=== PATIENT | male | born 1960 | race Caucasian/White ===

== ENCOUNTER 2018-07-15 12:51 | Observation (INO) | payer OTHER ==
--- NOTE | 2018-07-15 13:28 | ED ---
HPI Chest Pain - HPI Summary HPI Summary: This patient is a 57 year old M presenting to [facility] with a chief complaint of mid-sternal CP radiating to back that began earlier today. The patient rates the pain 9/10 in severity. Symptoms aggravated by position changes. Symptoms alleviated by nothing. Patient reports dizziness, cold hands and head. Patient denies nausea and SOB. - History of Current Complaint Chief Complaint: EDChestPainROMI Time Seen by Provider: 07/15/18 13:04 Hx Obtained From: Patient Onset/Duration: Started Hours Ago, Atraumatic, Still Present Timing: Constant Initial Severity: Severe Current Severity: Severe Pain Intensity: 9 Pain Scale Used: 0-10 Numeric Chest Pain Location: Mid Sternal Chest Pain Radiates: Yes Chest Pain Radiates To:: Back Aggravating Factor(s): Other: - Position changes Alleviating Factor(s): Nothing Associated Signs and Symptoms: Positive: Other: - Positive dizziness, cold hands and head. Negative nausea and SOB. - Allergy/Home Medications Allergies/Adverse Reactions: Allergies Allergy/AdvReac Type Severity Reaction Status Date / Time Penicillins Allergy Unknown Verified 07/15/18 12:59 Reaction Details PMH/Surg Hx/FS Hx/Imm Hx Previously Healthy: Yes Endocrine/Hematology History: Denies: Hx Diabetes Cardiovascular History: Denies: Hx Hypercholesterolemia, Hx Hypertension Infectious Disease History: No Infectious Disease History: Denies: Traveled Outside the [place] in Last 30 Days - Family History Known Family History: Positive: Cardiac Disease - Social History Occupation: Employed Full-time Lives: With Family Alcohol Use: Rare Hx Substance Use: No Substance Use Type: Reports: None Hx Tobacco Use: No Smoking Status (MU): Never Smoked Tobacco Review of Systems Positive: Chest Pain Negative: Shortness Of Breath Negative: Nausea Positive: Other - Positive cold hands and head Neurological: Other - Positive dizziness All Other Systems Reviewed And Are Negative: Yes Physical Exam - Summary Physical Exam Summary: GENERAL: Patient is a well-developed and nourished male. Appears uncomfortable secondary to pain.Patient is not in any acute respiratory distress. HEAD AND FACE: Normocephalic EYES: PERRLA, EOMI x 2. EARS: Hearing grossly intact. MOUTH: Oropharynx within normal limits. NECK: Supple, trachea is midline, no adenopathy, no JVD, no carotid bruit. CHEST: Symmetric, no tenderness at palpation LUNGS: Clear to auscultation bilaterally. No wheezing or crackles. CVS: Regular rate and rhythm, S1 and S2 present, no murmurs or gallops appreciated. ABDOMEN: Soft, Tender to palpation in the epigastric area. Bowel sounds are normal. No abdominal abnormal pulsations. EXTREMITIES: Full ROM in all major joints, no edema, no cyanosis or clubbing. NEURO: Alert and oriented x 3. No acute neurological deficits. Speech is normal and follows commands. SKIN: Dry and warm Triage Information Reviewed: Yes Vital Signs On Initial Exam: Initial Vitals Temp Pulse Resp BP Pulse Ox 97.9 F 70 18 155/114 99 07/15/18 12:56 07/15/18 12:56 07/15/18 12:56 07/15/18 12:56 07/15/18 12:56 Vital Signs Reviewed: Yes Diagnostics - Vital Signs Vital Signs Temp Pulse Resp BP Pulse Ox 07/15/18 13:17 20 176/91 07/15/18 13:16 18 07/15/18 12:56 97.9 F 70 18 155/114 99 - Laboratory Result Diagrams: 07/15/18 15:30 07/15/18 15:30 Lab Statement: Any lab studies that have been ordered have been reviewed, and results considered in the medical decision making process. - Radiology CXR Radiology Interpretation Completed By: Radiologist Summary of Radiographic Findings: CXR reveals, per radiologist, no active cardiopulmonary disease. ED physician has reviewed this radiology report. - CT CTA chest/abdomen/pelvis CT Interpretation Completed By: Radiologist Summary of CT Findings: CTA chest reveals, per radiologist, 1. NO AORTIC DISSECTION OR ANEURYSMAL DILATATION. 2. THERE IS A MURALIZED FILLING DEFECT OF A SEGMENTAL BRANCH OF THE LEFT LOWER LOBE, SUGGESTIVE OF A SUBACUTE TO CHRONIC PULMONARY EMBOLISM WITH A QUESTIONABLE FILLING DEFECT TO A SEGMENTAL BRANCH OF THE LINGULA, THOUGH THIS MAY BE SECONDARY TO MOTION ARTIFACT. 3. CHOLELITHIASIS. 4. FATTY INFILTRATION OF THE LIVER. 5. PRELIMINARY FINDINGS WERE DISCUSSED WITH DR. PENDLETON AT APPROXIMATELY 5:25 PM ON JULY 15 2018 . ED physician has reviewed this radiology report. - EKG 1303 Cardiac Rate: NL EKG Rhythm: Sinus Rhythm - 61 BPM Summary of EKG Findings: An EKG taken at 1303 reveals nml sinus rhythm at 61 BPM with normal axis. Chest Pain Course/Dx - Course Course Of Treatment: This patient is a 57 year old M presenting to [facility] with a chief complaint of mid-sternal CP radiating to back that began earlier today. Physical Exam Findings: Tender to palpation in the epigastric area. Appears uncomfortable secondary to pain. An EKG taken at 1303 reveals nml sinus rhythm at 61 BPM with normal axis. CXR reveals, per radiologist, no active cardiopulmonary disease. CTA chest/abdomen/pelvis reveals, per radiologist, 1. NO AORTIC DISSECTION OR ANEURYSMAL DILATATION. 2. THERE IS A MURALIZED FILLING DEFECT OF A SEGMENTAL BRANCH OF THE LEFT LOWER LOBE, SUGGESTIVE OF A SUBACUTE TO CHRONIC PULMONARY EMBOLISM WITH A QUESTIONABLE FILLING DEFECT TO A SEGMENTAL BRANCH OF THE LINGULA, THOUGH THIS MAY BE SECONDARY TO MOTION ARTIFACT. 3. CHOLELITHIASIS. 4. FATTY INFILTRATION OF THE LIVER. 5. PRELIMINARY FINDINGS WERE DISCUSSED WITH DR. PENDLEOTN AT APPROXIMATELY 5:25 PM ON JULY 15 2018 . Bloodwork obtained. In the ED course the patient was given Zofran, fluids, nitroglycerin, morphine, lidocaine, contrast, aspirin, and Maalox. Consult with Dr. Hurley (hospitalist) at 1800. He agrees to admit the patient for further evaluation. The patient is agreeable with this plan. - Diagnoses Provider Diagnoses: Chest pain Discharge - Sign-Out/Discharge Documenting (check all that apply): Patient Departure - Admit to [facility] Patient Received Moderate/Deep Sedation with Procedure: No - Discharge Plan Condition: Stable Disposition: ADMITTED TO [facility] - Billing Disposition and Condition Condition: STABLE Disposition: Admitted to [facility] - Attestation Statements Document Initiated by Carmitaibe: Yes Documenting Scribe: Raysa Ibarra Provider For Whom Ilia is Documenting (Include Credential): Dr. Thais Pendleton MD Scribe Attestation: I, Raysa Ibarra, scribed for Dr. Thais Pendleton MD on 07/17/18 at 1602. Scribe Documentation Reviewed: Yes Provider Attestation: The documentation as recorded by the Raysa fierro accurately reflects the service I personally performed and the decisions made by me, Dr. Thais Pendleton MD Status of Scribe Document: Viewed
[2018-07-15] MEDS ORDERED: Nitroglycerin TAB 0.4 MG* 0.4 MG TAB SL ONE (13:43)
[2018-07-15] MEDS ORDERED: Aspirin 81 mg CHEW TAB* 81 MG TAB.CHEW PO ONE (13:43)
[2018-07-15] MEDS ORDERED: Al Hydrox/Mg Hydrox/Simet LIQ* 30 ML UDC PO ONE (14:10)
[2018-07-15] MEDS ORDERED: Lidocaine 2% VISCOUS* 15 ML UDC PO ONE (14:10)
[2018-07-15] MEDS ORDERED: Ondansetron INJ* 2 MG/ML VIAL IV ONE (14:11)
[2018-07-15] MEDS ORDERED: NS 0.9% 1000 ML** 1,000 ML IV ONE (14:12)
[2018-07-15] MEDS ORDERED: Morphine VIAL* 4 MG/ML VIAL (1 ml vial) IV ONE (14:18)
[2018-07-15 15:35] LABS: Activated Partial Thrombo Time 27.2 seconds (26.0-36.3)
[2018-07-15 15:41] LABS: ABS Basophils 0 10^3/ul (0-0.2); ABS Eosinophils 0 10^3/ul (0-0.6); ABS Lymphocytes 0.7 10^3/ul (1.0-4.8); ABS Monocytes 0.2 10^3/ul (0-0.8); ABS Neutrophils 8.3 10^3/ul (1.5-7.7); ABS Nucleated RBC 0 10^3/ul; Eosinophil % 0 %; Hematocrit 46 % (42-52); Hemoglobin 15.8 g/dl (14.0-18.0); Lymphocyte % 7.8 %; Mean Corpuscular HGB Conc 35 g/dl (31-36); Mean Corpuscular Hemoglobin 33 pg (27-31); Mean Corpuscular Volume 95 fL (80-94); Mean Platelet Volume 6.8 fL (7.4-10.4); Nucleated Red Blood Cells % 0; Platelet Count 268 10^3/ul (150-450); Red Blood Count 4.84 10^6/ul (4.00-5.40); Red Cell Distribution Width 13 % (10.5-15); White Blood Count 9.3 10^3/ul (3.5-10.8)
[2018-07-15 15:59] LABS: Albumin 4.6 g/dL (3.2-5.2); Albumin/Globulin Ratio 1.7 (1-3); BUN/Creatinine Ratio 12.2 (8-20); Calcium 9.4 mg/dL (8.6-10.3); EGFR Non-African American 87.6 (>60); Globulin 2.7 g/dL (2-4); Magnesium 1.8 mg/dL (1.9-2.7); Potassium 4.3 mmol/L (3.5-5.0); Total Bilirubin 0.8 mg/dL (0.2-1.0); Total Protein 7.3 g/dL (6.4-8.9)
[2018-07-15] MEDS ORDERED: Iohexol 350* (CONTRAST) 500 ML MDV IV ONE (16:08)
[2018-07-15] MEDS ORDERED: Warfarin TAB(*) 5 MG PO ONE (19:00)
[2018-07-15] MEDS: Enoxaparin(*) 150 MG/ML 1 ML SYRINGE SUBCUT SCH (19:14)
[2018-07-15] MEDS: oxyCODONE TAB* 5 MG TAB PO PRN (20:21)
[2018-07-15] MEDS: Morphine VIAL* 4 MG/ML VIAL (1 ml vial) IV PRN (21:03)
--- NOTE | 2018-07-15 23:28 | HP ---
CC: Dr. Rosen * [facility] MEDICINE HISTORY AND PHYSICAL: DATE OF ADMISSION: 07/15/18 PRIMARY CARE PHYSICIAN: Dr. Rosen. ATTENDING PHYSICIAN: Dr. Ku * (dictation provided by Michelle Asencio NP). CHIEF COMPLAINT: Chest pain and shortness of breath. HISTORY OF PRESENT ILLNESS: Mr. Moffett is a 57-year-old male with no known past medical history, presented to the hospital today after week and a half of intermittent midsternal chest discomfort that has been worsening in intensity and severity. Mr. Moffett states that he first felt these feelings last Tuesday. He describes the midsternal chest pain is associated with some feelings of lightheadedness and shortness of breath. It does radiate into the epigastric region. He does not have a history of heartburn, but thought perhaps it could be heartburn initially. The first episode lasted 3 to 4 hours. The next episode was a little bit longer and that occurred on Tuesday of this past week. Today, at 8 a.m., the patient again had a sudden onset of severe pain in the center of his chest. He stated by about an hour later, the pain had peaked in intensity and has been unchanged until he was given medication for pain in the emergency room. He states he is much more comfortable now, but that the pain seems to be coming on again. Again, this is associated with some lightheadedness and shortness of breath at times. He denies any diaphoresis. It does not radiate into the arm or neck and it does not seem to be associated with activity. In the emergency room, Mr. Moffett had labs which showed no leukocytosis. His vital signs are stable. His electrolytes were essentially normal. He did have a slightly elevated lactic acid of 2.3. His D-dimer was less than 200. Chest x -ray shows no acute intrathoracic process. Because of the severity and location of his pain, he did go on for a chest, abdomen and pelvis CTA, which showed that he has a "muralized filling defect of a segmental branch in the left lower suggestive of a subacute to chronic pulmonary embolism with a questionable filling defect to a segmental branch of the lingula. Cholelithiasis." Mr. Moffett's weight is 300 pounds, which puts him over the 120 kg cut-off point for use of oral anticoagulants and therefore he will be started on Lovenox with warfarin. The patient denies any recent travel. He denies any recent increased sedentariness. 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 He denies any recent pain or swelling or redness to his calves. PAST MEDICAL HISTORY: None. MEDICATIONS: None. ALLERGIES: To PENICILLIN. FAMILY HISTORY: The patient reports his mother had a heart attack, but related to lung cancer after being a long-term smoker at age 70. Dad also had a heart attack, but he related to esophageal and stomach cancer in his 60s. SOCIAL HISTORY: No report of tobacco or drug use. The patient states he drinks alcohol very rarely. He lives with his and she is the healthcare proxy. REVIEW OF SYSTEMS: A 14-point review of systems was completed with Mr. Moffett and all those not mentioned above were negative. PHYSICAL EXAMINATION GENERAL: Mr. Moffett is sitting up in the bed. He is in no acute distress. VITAL SIGNS: Temperature 97.9, pulse rate 74, respiratory rate 19, O2 saturation 98% on room air, blood pressure 157/93. LUNGS: Clear to auscultation bilaterally with no accessory muscle use and good aeration. HEART: S1, S2. No murmur, rub, or gallop and regular. ABDOMEN: Soft, nontender with bowel sounds positive x4. EXTREMITIES: No cyanosis or edema. NEURO: He is alert. He is oriented x3. He moves all extremities equally. There is no facial asymmetry or focal weakness. Extraocular movements are intact. SKIN: Intact. DIAGNOSTIC STUDIES/LAB DATA: WBC 9.3, hemoglobin 15.8, hematocrit 46, platelet count 268. INR 1.00. D-dimer less than 200. Sodium 138, potassium 4.3, chloride 105, serum bicarbonate 26, BUN 11, creatinine 0.90, glucose 128, lactic acid 2.3. Troponin 0.00. Chest x-ray again shows no acute intrathoracic process and the chest, abdomen, and pelvis CTA as is read above. The EKG shows a sinus rhythm with a heart rate of about 60. ASSESSMENT AND PLAN: Mr. Moffett is a 57-year-old male with no significant past medical history who presents today to the hospital with concern for chest pain and shortness of breath, found to have a subacute pulmonary embolism. Plans are for observation in the hospital for the followin. Pulmonary embolism. The patient's symptoms have been going on for about a week and a half, which correlates with the subacute findings of pulmonary embolism. He is stable at this point, but deserves observation in the hospital due to continued pain with associated lightheadedness and shortness of breath. Plan to check lower extremity Dopplers and transthoracic echocardiogram to further assess severity of clot burden. The patient is not a candidate for novel anticoagulant due to his weight and therefore will be started on Lovenox tonight with warfarin therapy. He will continue on oxygen as needed. 2. DVT prophylaxis with Lovenox and warfarin. 3. Code status is full code. TIME SPENT: Approximately 60 minutes was spent on the admission of this patient , more than half the time spent with the patient at the bedside reviewing the events leading up to this hospitalization, performing the physical examination and reviewing my plan of care. MICHELLE ASENCIO NP [id number]/[facility] #: [id number] SANTOS
[2018-07-16] MEDS: Morphine VIAL* 4 MG/ML VIAL (1 ml vial) IV PRN ×2 (01:05→08:17)
[2018-07-16] MEDS: Enoxaparin(*) 150 MG/ML 1 ML SYRINGE SUBCUT SCH (09:00)
--- NOTE | 2018-07-16 09:29 | PN ---
Subjective Date of Service: 07/16/18 Interval History: Ms. Moffett continues to have discomfort in the center of his chest which is mostly relieved with small doses of morphine. He is open to trying oxycodone again today to see if this oral medication can provide similar relief in anticipation of discharge. He has been up ambulating in his room without SOB or lightheadedness. He is tolerating oral intake well. Objective Active Medications: Enoxaparin Sodium (Lovenox(*)) 135 mg SUBCUT Q12H ANTONIO Morphine Sulfate (Morphine Vial*) 2 mg IV Q4H PRN Oxycodone HCl (Roxycodone Tab*) 5 mg PO Q4H PRN Warfarin Sodium (Coumadin Tab(*)) 5 mg PO DAILY@1700 ANTONIO; Protocol Vital Signs: Temp Pulse Resp BP Pulse Ox 97.4 F 73 20 160/83 98 07/16/18 08:25 07/16/18 08:25 07/16/18 08:17 07/16/18 08:25 07/16/18 08:25 Oxygen Devices in Use Now: Nasal Cannula Appearance: Male lying in bed in NAD Eyes: No Scleral Icterus Ears/Nose/Mouth/Throat: Mucous Membranes Moist Neck: Trachea Midline Respiratory: Symmetrical Chest Expansion and Respiratory Effort, Clear to Auscultation Cardiovascular: NL Sounds; No Murmurs; No JVD, No Edema Abdominal: NL Sounds; No Tenderness; No Distention Extremities: No Edema Skin: No Rash or Ulcers Neurological: Alert and Oriented x 3, NL Muscle Strength and Tone Nutrition: Taking PO's Result Diagrams: 07/15/18 15:30 07/15/18 15:30 Assess/Plan/Problems-Billing Assessment: Mr. Moffett is a 57 yo M with no significant PMH who was admitted on 07/15/18 with chest pain and pulmonary embolism. - Patient Problems (1) Pulmonary embolism Comment: - Not tachycardic, not hypoxic - No clear inciting event though patient is generally sedentary - Plan for lovenox BID until warfarin is therapeutic. Unable to use NOAC due to patient being > 120kg. - Echo with no evidence of cor pulmonale, intact EF, no wall motion or valvular abnormalities (2) DVT prophylaxis Comment: - Lovenox (3) Full code status Comment: Status and Disposition: OBV. Discharge to home.
[2018-07-16] MEDS ORDERED: Perflutren Lipid Microsphere* 3 ML VIAL ONE (10:30)
[2018-07-16 11:24] VITALS: BP 160/80
[2018-07-16] MEDS: oxyCODONE TAB* 5 MG TAB PO PRN (11:38)
--- NOTE | 2018-07-16 11:54 | ECHO ---
Patient: HARITHA PANDEY [facility] Rec#: [id number] : 1960 Date: 07/16/2018 Age: 57y Height: 183 cm / 72.0 in Weight: 136.1 kg / 300.0 lbs Sex: M BSA: 2.53 Room#: [facility] Admit Date#: 07/15/2018 Type: Inpatient Referring: Michelle Asencio NP Reading: Ramesh Josue MD [employer]er: Catarina Carranza RDCS CC: Warren Rosen MD Transthoracic Echocardiogram Indication: Pulmonary Embolism BP: 166/73 HR: 87 Rhythm: NSR Findings History: Morbid obesity. Technical Comments: The study is technically difficult. The study is technically limited due to patient body habitus. Left Ventricle: The left ventricular chamber size is normal. Mild concentric left ventricular hypertrophy is observed. Global left ventricular wall motion and contractility are within normal limits. There is normal left ventricular systolic function. The estimated ejection fraction is 60-65%. There is no consistent Doppler evidence of clinically significant diastolic dysfunction. Left Atrium: The left atrium is mildly dilated. Right Ventricle: The right ventricle is mildly dilated. The right ventricular global systolic function is low normal. Right Atrium: The right atrium is moderately dilated. Aortic Valve: The aortic valve is trileaflet. The aortic valve leaflets are mildly thickened. There is a trace of aortic regurgitation. There is no evidence of aortic stenosis. Mitral Valve: There is mitral annular calcification. The mitral valve leaflets are mildly thickened. There is a trace of mitral regurgitation. There is no evidence of mitral stenosis. Tricuspid Valve: The tricuspid valve leaflets are normal. There is trace tricuspid regurgitation. Unable to estimate the right ventricular systolic pressure. There is no tricuspid stenosis. Pulmonic Valve: The pulmonic valve structure is not well visualized. There is a trace pulmonic regurgitation. There is no pulmonic stenosis. Pericardium: There is no significant pericardial effusion. A pericardial fat pad is visualized. Aorta: There is moderate dilatation of the ascending aorta.4.2 cm There is no dilatation of the aortic arch. There is mild dilatation of the aortic root. Pulmonary Artery: The main pulmonary artery appears normal. Venous: The inferior vena cava is dilated. There is a greater than 50% respiratory change in the inferior vena cava dimension. Contrast: Definity was used to optimize study. 3 mL of diluted Definity were utilized. Intravenous contrast was used to enhance endocardial border definition. Summary: There was not any prior study for comparison. Conclusions Global left ventricular wall motion and contractility are within normal limits. There is normal left ventricular systolic function. The estimated ejection fraction is 60-65%. There is a trace of aortic regurgitation. There is a trace of mitral regurgitation. There is trace tricuspid regurgitation. Unable to estimate the right ventricular systolic pressure. There is no significant pericardial effusion. There is moderate dilatation of the ascending aorta.4.2 cm Measurements Name Value Normal Range RVDdMajor (2D) 4.9 cm (2.2 - 4.4) RAd ISD 4CH 5.8 cm (3.4 - 4.9) RA (A4C)W 4.7 cm (2.9 - 4.6) Ao root diameter (2D) 3.7 cm (2.1 - 3.5) Ascending Ao 4.2 cm (2.1 - 3.4) Aortic arch 2.3 cm (1.8 - 3.4) LA dimension (AP) 2D 4.5 cm (2.3 - 3.8) Name Value Normal Range IVC diameter 2.2 cm - Name Value Normal Range PV Vmax 1.3 m/sec -
[2018-07-16] MEDS ORDERED: Warfarin TAB(*) 5 MG PO SCH (17:00)
--- NOTE | 2018-07-16 20:41 | DS ---
CC: Dr. Rosen * HOSPITAL MEDICINE DISCHARGE SUMMARY: DATE OF ADMISSION: 07/15/18 DATE OF DISCHARGE: 07/16/18 PRIMARY CARE PHYSICIAN: Dr. Rosen. ATTENDING PHYSICIAN: Dr. White * (dictation provided by Michelle Asencio NP). PRIMARY DIAGNOSIS: Pulmonary embolism. SECONDARY DIAGNOSIS: None. MEDICATIONS: At the time of discharge are: 1. Lovenox 140 mg subcutaneously q.12 hours. 2. Warfarin 5 mg p.o. q.p.m. 3. Oxycodone 5 mg p.o. q.4 hours p.r.n. HOSPITAL COURSE: Mr. Moffett is a 57-year-old male with no known past medical history, who presented to the hospital on 07/15/18 with concern for a chest pain. Please see dictated H and P from myself for complete details. In brief, the patient reported about a week and half of intermittent chest pain. His troponin was 0.00. EKG showed no evidence of ischemia. He went on for a chest , abdomen and pelvis CTA, which did confirm that he had a muralized filling defect of a segmental branch of the left lower lobe suggestive of a subacute to chronic pulmonary embolism. Mr. Moffett had no clear risk factors for PE. He has not been traveling. He has no history of PE. He has no family history of PE. I questioned whether or not this is related to his just generally sedentary lifestyle. Regardless, the patient is treated with Lovenox b.i.d. with warfarin q.p.m. Unfortunately, he was not a candidate for a direct oral anticoagulant because of his weight being greater than 120 kg. Further evaluation was undertaken with repeat troponins, all of which were negative and a transthoracic echocardiogram that showed no evidence of cor pulmonale with an intact ejection fraction and normal wall motion and valvular function. Mr. Moffett has been doing well. Today, he is up and ambulating in his room with no difficulty. He does continue to have some chest discomfort, for which I have prescribed oxycodone. I have gone over with him at length the fact that he will need to stay on Lovenox injections b.i.d. until his INR has been between 2 to 3 for 24 hours. He will be following up with Dr. Rosen's office to acquire a new primary care physician and to alert them to the fact that he needs to have his INR checked and followed closely as of Tuesday. Mr. Moffett is medically stable for discharge to home and following up with Dr. Rosen's office regarding acquiring a new PCP. DISPOSITION: To home. DIET: Regular. ACTIVITY: The patient has been encouraged to slowly ramp up his activity over the next 5 to 10 days. I have also encouraged him that he needs to have regular movement and he should consider perhaps a standing desk once he is recovered from this PE to avoid PE in the future. I have recommended to him that if there is any question about the origin of the PE that he could consider hematology consultation, but he would at least need to be on anticoagulation for 3 months. TIME SPENT: Approximately 60 minutes was spent in the discharge of this patient , more than half that time was spent with the patient at the bedside reviewing the events leading up to and during this hospitalization, performing the physical examination, and reviewing my plan of care. MICHELLE ASENCIO NP [id number]/[facility] #: [id number] SANTOS
== END 2018-07-16 15:00 | disposition home or self-care (01) ==
LOC: ED 12:51 → MEDTELE 18:14
PROVIDERS: ADMIT Internal Medicine; ATTEND Internal Medicine
DX: I26.99 Other pulmonary embolism without acute cor pulmonale (principal); Z79.01 Long term (current) use of anticoagulants; R42 Dizziness and giddiness; Z88.0 Allergy status to penicillin; R07.9 Chest pain, unspecified
CPT/HCPCS: 36415; 71045; 71275; 74174; 80053; 83605; 83690; 83735; 83880; 84484; 85025; 85379; 85610; 85730; 93005; 93306; 93970; 96372; 96374; 96375; 96376; 99284; A9270-GY; C8929; G0378; J1650; J2270; J2405; Q9967

== ENCOUNTER 2019-05-03 05:41 | Day surgery (SDC) | payer OTHER ==
--- NOTE | 2019-04-18 16:09 | HP ---
CC: Dr. Svetlana Rapp * PREOPERATIVE HISTORY AND PHYSICAL: DATE OF ADMISSION/SURGERY: 05/03/19 This patient is scheduled for same-day surgery admission by Dr. Rosas on 05/03/19. DATE OF PREOPERATIVE HISTORY AND PHYSICAL EXAMINATION: 04/18/19. ATTENDING SURGEON: Dr. Jeimy Rosas * (dictated by Roseann Martinez NP). CHIEF COMPLAINT: Right inguinal hernia. HISTORY OF PRESENT ILLNESS: The patient is a 58-year-old male with a history of an unprovoked pulmonary embolism in June of this year and a more recent history of a symptomatic right inguinal hernia. He was referred from his primary care provider, Dr. Rapp, to discuss surgery. The patient states that he noticed pain in his right groin several months ago with certain movements and occasionally feels a bulge that comes and goes. He does not notice any pain or changes on the left side. He denies any change in bowel habits or nausea or vomiting. He denies any dysuria or signs or symptoms of incarceration or strangulation. He has lost significant amount of weight since June of this year; he weighed 305 pounds and currently weighs 190 pounds and he achieved this with the 1200 calorie diet and exercise and supervision by his primary care provider. Dr. Rosas examined the patient and noted a soft reducible right inguinal hernia. She reviewed the findings with the patient and discussed the nature of inguinal hernias, the indications for surgery and the options for surgical repair. The patient has opted for laparoscopic right inguinal hernia repair with mesh as a same-day surgery procedure under general anesthesia. Dr. Rosas described the nature of the procedure, the relevant risks and benefits and today I reviewed the expected postoperative care and recovery. The patient has had a chance to ask questions and stated that he understands the information and is satisfied with the answers given to his questions. He will sign surgical consent on the day of surgery. PAST MEDICAL HISTORY: Significant for obesity, resolved with diet and exercise ; pulmonary embolism in June 2018, unprovoked. PAST SURGICAL HISTORY: None. MEDICATIONS: 1. Multivitamin p.o. daily. 2. CoQ10 supplement p.o. daily, which he will hold 1 week preoperatively. 3. Fish oil supplement p.o. daily, which he will hold 1 week preoperatively. 4. Orthobiotic which is a probiotic 1 capsule daily. 5. Magnesium 250 mg daily. 6. Glucosamine-chondroitin 1 tablet daily. ALLERGIES: PENICILLIN causes hives. FAMILY HISTORY: No known anesthesia complications, bleeding tendencies, or clotting disorders. Father due to esophageal and gastric cancer. Mother with a history of heart disease, COPD. 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 He has never been a smoker. He rarely consumes alcohol and denies the use of other substances. REVIEW OF SYSTEMS: Constitutional: No fevers, chills, excessive fatigue, or unintended weight loss. General: No previous anesthesia complications. No history of deep vein thrombosis, but he did have an unprovoked pulmonary embolism in June 2018 and is no longer on anticoagulation. No unusual bleeding tendencies or blood transfusions. Endocrine: No diabetes or thyroid disease known. Respiratory: No dyspnea on exertion, but he states that since the pulmonary embolism, he feels that he could not take a complete deep breath, but he denies any chronic cough or use of accessory muscles. Cardiovascular: No anginal chest pain or palpitations and he exercises routinely with both cardio and weight. Gastrointestinal: As described in history of present illness. Genitourinary: No dysuria. Musculoskeletal: Normal strength and tone. Integumentary: No chronic rashes or skin changes. Neurologic: No headache, blurred vision, or areas of focal weakness. Psychiatric: No anxiety , depression, or insomnia. PHYSICAL EXAMINATION GENERAL SURVEY: The patient is a 58-year-old male, well developed, well nourished, in no acute distress. VITAL SIGNS: Height 72 inches, weight 190 pounds, body mass index 25.8. Blood pressure 108/72, pulse 72 and regular, respiratory rate 16, temperature 97.4 tympanic. HEENT: Benign. NECK: Supple. No cervical lymphadenopathy. LUNGS: Breath sounds bilaterally clear and equal. HEART: Regular rate and rhythm. No murmurs or rubs appreciated. ABDOMEN: Active bowel sounds, soft, nondistended, nontender throughout. No obvious masses or organomegaly. Inguinal exam reveals a soft reducible right inguinal hernia. GENITALIA: Exam done recently, not repeated. RECTAL: Exam done recently, not repeated. EXTREMITIES: Warm and well perfused. No edema or skin ulcerations. NEUROLOGIC: Alert and oriented x3. Steady gait. PSYCHIATRIC: Oriented to person, place and time. SKIN: Warm, dry, intact. IMPRESSION: Right inguinal hernia. PLAN: Same-day surgery admission on 05/03/[address] Jeimy Rosas's service for laparoscopic right inguinal hernia repair with mesh. DERECK MARTINEZ, TAPEMAN [id number]/CPS #: [id number] SANTOS
[~2019-05-03 05:41] MED LIST: Buffered Lidocaine 1% SYRIN* 1 ML/SYRINGE INTRADERM ONE
[2019-05-03] MEDS ORDERED: Dexamethasone IV* 4 MG/ML 1 ML (4 MG) IV SLOW PU ONE (06:00)
[2019-05-03] MEDS ORDERED: Famotidine IV* 10 MG/ML 2 ML (20 mg) IV ONE (06:00)
[2019-05-03] MEDS ORDERED: Lactated Ringers 1000 ML Bag* 1,000 ML IV SCH (06:00)
[2019-05-03] MEDS ORDERED: Dexamethasone IV* 4 MG/ML 1 ML (4 MG) ONE (06:59)
[2019-05-03] MEDS ORDERED: Heparin VIAL(*) 5000 UNITS/ML VIAL (FIVE THOUSAND) ONE (06:59)
[2019-05-03] MEDS ORDERED: Clindamycin 900 MG/D5W BAG(*) 900 MG/50 ML BAG IVPB ONE (06:59)
[2019-05-03] MEDS ORDERED: Famotidine IV* 10 MG/ML 2 ML (20 mg) ONE (07:00)
[2019-05-03] MEDS ORDERED: Bupivacaine 0.25% SDV* 30 ML ONE (07:13)
[2019-05-03] MEDS ORDERED: Ondansetron INJ* 2 MG/ML VIAL ONE (07:16)
[2019-05-03] MEDS ORDERED: Propofol* 10 MG/ML 20 ML BTL ONE (07:16)
[2019-05-03] MEDS ORDERED: Ketorolac INJ* 30 MG/ML 1 ML VIAL ONE (07:16)
[2019-05-03] MEDS ORDERED: KETAMINE HCL* 50 MG/ML 10 ML VIAL ONE (07:17)
[2019-05-03] MEDS ORDERED: Midazolam* 1 MG/ML 2 ML VIAL (2 MG) ONE (07:17)
[2019-05-03] MEDS ORDERED: fentaNYL* 50 MCG/ML 2 ML VIAL (100 MCG VIAL) ONE (07:17)
[2019-05-03] MEDS ORDERED: Rocuronium* 10 MG/ML VIAL ONE (07:20)
[2019-05-03] MEDS ORDERED: Phenylephrine 40 MCG/ML SYRINGE ONE (08:03)
[2019-05-03] MEDS ORDERED: EPHEDrine (Pressors)* 50 MG/ML VIAL ONE (08:18)
[2019-05-03] MEDS ORDERED: fentaNYL* 50 MCG/ML 2 ML VIAL (100 MCG VIAL) IV PRN (08:41)
[2019-05-03] MEDS ORDERED: Naloxone* 0.4 MG/ML 1 ML VIAL IV PRN (08:41)
[2019-05-03] MEDS ORDERED: DiMENhydriNATE IV* 50 MG/ML VIAL IV PUSH PRN (08:41)
[2019-05-03] MEDS ORDERED: Glycopyrrolate IV* 0.2 MG/ML 1 ML VIAL ONE ×2 (10:29→10:31)
[2019-05-03] MEDS ORDERED: Neostigmine Methylsulfate* 3 MG/3 ML SYRINGE ONE (10:30)
--- NOTE | 2019-05-03 11:04 | BRIEFOPN ---
Brief Operative/Procedure Note - Operation Details Pre-Op Diagnosis: right inguinal hernia Post-Op Diagnosis: right direct inguinal hernia Procedures: laparoscopic right inguinal hernia repair with mesh, TEP Surgeon(s)/Proceduralists: Alejo Washington Anesthesia: Dr. Merle PORTILLO Estimated Blood Loss: minimal, less than 20cc Findings: right direct hernia Complications: none
[2019-05-03 12:41] VITALS: BP 119/77
--- NOTE | 2019-05-03 13:26 | OP ---
DATE OF OPERATION: 05/03/19 - [facility] DATE OF : 64 SERVICE: General Surgery. ATTENDING SURGEON: Jeimy Rosas MD AIR CONDITIONING COIL ASSEMBLER: Alejo Ledbetter MD ANESTHESIOLOGIST: Dr. Isidro Bloom. ANESTHESIA: General endotracheal anesthesia. PRE-OP DIAGNOSIS: Right inguinal hernia. POST-OP DIAGNOSIS: Right direct inguinal hernia. OPERATIVE PROCEDURE: Laparoscopic right inguinal hernia repair with mesh, totally extraperitoneal. ESTIMATED BLOOD LOSS: Minimal, less than 20 cc. SPECIMENS: None. INDICATIONS FOR SURGERY: Mr. Moffett is a very pleasant 58-year-old gentleman who developed asymptomatic right inguinal hernia. Given that it was becoming increasingly bothersome, he wished to have it repaired. He elected to undergo a laparoscopic right inguinal hernia repair with mesh. He understood that the risks included, but were not limited to, bleeding, infection, injury to nearby structures, chronic pain, urinary retention, and the possibility of mesh infection and so forth. He understood alternatives and benefits as well and he wished to proceed. DESCRIPTION OF PROCEDURE: The patient was brought back to the operating room and placed on the operating room table in a supine position. Sequential compression devices were placed in the bilateral lower extremities for DVT prophylaxis. Subcutaneous heparin was also administered given his prior history of a pulmonary embolus. General endotracheal anesthesia was induced. Antibiotics with Clindamycin (given his Penicillin alllergy) were administered preoperatively and then his abdomen was prepped and draped in a normal sterile fashion after tucking both arms. Of note, the patient did urinate prior to coming to the operating room. A time out was performed confirming the patient' s name, date of and the procedure to be performed, including the laterality (right). Next, 0.25% Marcaine was infiltrated into the periumbilical area. An incision was made just at the right of the umbilicus. The skin was then divided down to the subcutaneous tissue until the anterior rectus sheath was identified. Once it was identified, a small incision was made and the rectus muscle was retracted laterally until the posterior sheath was identified. An S retractor was used to retract the rectus. The space that was presumed to be retrorectus was developed using a balloon dilator towards the pubis and insufflated; however, upon visualization of the space with a laparoscope, it was noted that we are actually above the rectus. Therefore, the balloon was removed and the subcutaneous area was desufflated and an attempt was made to do this again after retracting the rectus muscle and entering the retrorectus plane. The similar subcutaneous space was entered. Therefore, a decision was made to extend the skin incision below the umbilicus and identify the anterior rectus sheath in a new location below the umbilicus. The linear alba and anterior rectus sheath were identified. A small incision was made through the anterior rectus sheath and the rectus muscle was retracted laterally with an S retractor until the posterior sheath was identified clearly. At this point, another balloon dilator was advanced retrorectus and directed towards the pelvis. It was insufflated. It was very clear that we are in the correct retrorectus space at this time, and then once balloon dilator had completed developing the space, it was removed and a 12 mm balloon tip trocar was placed into this retrorectus space, which was clearly the correct space as the pubis was easily identified. Under direct visualization, the remaining two 5 mm trocars were placed just to the right of the midline after administering local anesthesia. At this point, the medial landmark was developed. The pubis was identified at the midline and then Jorje's ligament was also identified. The overlying preperitoneal fat was dissected off to expose it clearly. The bladder was noted to be down. The epigastric vessels were identified on the anterior abdominal wall. The lateral space was then developed bluntly and superiorly to the level of the anterior superior iliac spine and posteriorly and inferiorly towards the psoas muscle. Once this was clearly identified, the indirect space was further elucidated. The femoral vein and artery were also visualized and the epigastrics were noted to be taking off at these vessels. Just lateral to the epigastric vessels, the indirect space was identified. There was a small cord lipoma there, but there was no clear indirect hernia. Further investigation of the direct space showed that there was a direct hernia. The preperitoneal fat was reduced from the space, and then once this was done, there was clearly a defect in this area that was medial to the epigastric vessels. Attention was turned again towards the indirect space. The vas deferens was identified, and again, there did not appear to be any indirect hernia sac. There was also no femoral hernia that was identified. Therefore, at this point, the dissection was completed. Once the lateral space was cleared out towards the abdominal wall and peritoneum, there was sufficient space for appropriate placement of the mesh. A right sided medium 3D Bard mesh was selected and advanced through the 12 mm trocar. It was unfurled and positioned so that the medial aspect overlay the pubis and Coopers ligament and the lateral aspect was on the abdominal wall. The direct and indirect spaces were well overed. A tacker was used to secure it above Jorje' s ligament, lateral above the ileopubic track and on the anterior abdominal wall , with care to avoid the epigastric vessels. A final inspection of the operative space showed that there was no bleeding and hemostasis had been obtained. Therefore, the trocars were removed under direct visualization and desufflation was obtained while visualizing the mesh to ensure it remained in place. The anterior fascia at the 12mm port site was closed using an interrupted 0-vicryl suture in a figure of 8 fashion. The skin was closed using interrupted 4-0 monocryl sutures. Sterile dressing was obtained. The patient's anesthesia was reversed and he was taken to the PACU in stable condition. At the end of the case, all counts were correct and I was present during the entirety of the case. [id number]/[facility] #: [id number] MTDD
== END 2019-05-03 12:44 | disposition home or self-care (01) ==
LOC: OR 05:41
PROVIDERS: ATTEND Surgery
DX: K40.90 Unilateral inguinal hernia, without obstruction or gangrene, not specified as recurrent (principal); Z86.711 Personal history of pulmonary embolism; Z88.0 Allergy status to penicillin; M19.90 Unspecified osteoarthritis, unspecified site
CPT/HCPCS: C1781; J1100; J1644; J1885; J2250; J2405; J2704; J2710; J3010; J3490

== ENCOUNTER 2019-05-03 22:42 | Inpatient (IN) | payer OTHER ==
--- NOTE | 2019-05-03 23:20 | ED ---
Syncope/Near Syncope - HPI Summary HPI Summary: This pt is a 58 Y/O M [facility] accompanied by his friend with a CC of hypotension that has been present since 1700 today s/p a hernia repair that was done at 0730 this morning with one episode of syncope. He state that the incision site is currently still bleeding and has been swelling since he arrived home at 1400. He state states he does not have any pain on the incision site but states that he feels a pressure and the area is hrd He reports that he had a syncopal episode that was witnessed by his friend at 2130 today but did not suffer any head trauma. He states that he also has abdominal pain and rates the severity a 6/10. His blood pressure upon triage was 72/50. He denies any fever, SOB, headaches, and chills. He states no aggravating or alleviating factors. - History Of Current Complaint Chief Complaint: EDAbdPain Hx Obtained From: Patient Onset/Duration: Sudden Onset Timing: Constant Context: Witnessed Activity At Onset: Other - standing from a sitting position Associated Head Trauma: No Aggravating Factor(s): Position Change Alleviating Factor(s): Spontaneous Resolution Associated Signs And Symptoms: Negative - fever, SOB, headaches, and chills, Lightheadedness, Other - abdominal pain, hypotension - Allergies/Home Medications Allergies/Adverse Reactions: Allergies Allergy/AdvReac Type Severity Reaction Status Date / Time Penicillins Allergy Unknown Verified 05/03/19 22:56 Reaction Details PMH/Surg Hx/FS Hx/Imm Hx Previously Healthy: Yes Endocrine/Hematology History: Denies: Hx Diabetes Cardiovascular History: Reports: Hx Embolism - Admission Dx : PE Denies: Hx Hypercholesterolemia, Hx Hypertension Respiratory History: Reports: Hx Pulmonary Embolism - 07/15/18 WAS ADMITTED [facility], STATES OK NOW, NO MEDS Musculoskeletal History: Reports: Hx Arthritis - STATES VARIOUS AREAS, MILD Sensory History: Reports: Hx Contacts or Glasses - GLASSES Denies: Hx Hearing Aid Opthamlomology History: Reports: Hx Contacts or Glasses - GLASSES - Cancer History Hx Chemotherapy: No Hx Radiation Therapy: No - Surgical History Surgical History: Yes Surgery Procedure, Year, and Place: Inguinal hernia repair 05/03/19 Hx Anesthesia Reactions: No - Immunization History Immunizations Up to Date: Yes Infectious Disease History: No Infectious Disease History: Denies: Traveled Outside the [place] in Last 30 Days - Family History Known Family History: Positive: Cardiac Disease - Social History Occupation: Employed Full-time Lives: Alone Alcohol Use: Rare Alcohol Amount: MAYBE 2-3 DRINKS/PER YEAR Hx Substance Use: No Substance Use Type: Reports: None Hx Tobacco Use: No Smoking Status (MU): Never Smoked Tobacco Have You Smoked in the Last Year: No Review of Systems - ROS Summary Review of Systems Summary: Home Medications Medication Instructions Recorded Confirmed Type Oxycodone HCl/Acetaminophen 1 each PO Q6H PRN #15 tablet MDD 3 05/03/19 Rx [Percocet 5-325 mg Tablet] tabs daily Negative: Fever, Chills Cardiovascular: Other - hypotension Negative: Shortness Of Breath Positive: Abdominal Pain Skin: Other - swelling around incision site Positive: Syncope - witnessed and without head truama . Negative: Headache All Other Systems Reviewed And Are Negative: Yes Physical Exam - Summary Physical Exam Summary: General: Well-developed, Well-nourished male. No acute distress. HEENT: Normocephalic, Atraumatic. Eyes: Conjuctiva normal, PERRL. Ears: TMs within normal limits. Nares: (-) discharge, (-) erythema. Oropharynx: Clear, mucous membranes moist, (-) exudates. Neck: Soft, FROM, (-) lymphadenopathy, (-) thyromegaly, (-) JVD. Cardiovascular: Normal sinus rhythm, (-) murmur. Lungs: Clear to auscultation bilaterally (-) wheezes, (-) rales, (-) rhonchi. Abdomen: R abdominal swelling and ecchymosis, his inferior incision is soaked with bright red blood and firm. Mild tenderness to palpitation. (-) organomegaly , normal bowel sounds. Back: (-) CVA tenderness Extremities: No edema. Skin: Warm, dry, (-) rash. Neuro: Alert and oriented x3, no focal deficits. Psychiatric: Mood normal, affect normal. Triage Information Reviewed: Yes Vital Signs On Initial Exam: Initial Vitals Temp Pulse Resp BP Pulse Ox 99.0 F 95 16 72/50 98 05/03/19 22:45 05/03/19 22:45 05/03/19 22:45 05/03/19 22:45 05/03/19 22:45 Vital Signs Reviewed: Yes Procedures - Sedation Patient Received Moderate/Deep Sedation with Procedure: No Diagnostics - Vital Signs Vital Signs Temp Pulse Resp BP Pulse Ox 05/03/19 22:45 99.0 F 95 16 72/50 98 - Laboratory Result Diagrams: 05/03/19 23:05 05/03/19 23:05 Lab Statement: Any lab studies that have been ordered have been reviewed, and results considered in the medical decision making process. - CT CT A/P CT Interpretation Completed By: Radiologist Summary of CT Findings: 1. Large hematoma overlying the anterior wall of the pelvis on the right side. Punctate focus of contrast within the posterior aspect of the hematoma. This. may indicate active bleeding. This is adjacent to a right inguinal hernia. Air. and fluid is seen within the right inguinal hernia. Subcutaneous air is seen. surrounding the hematoma which also involves the abdominal and pelvic. musculature. Free air within the peritoneal cavity as well as in the. retroperitoneal space. 2. Air extends into the right lower chest wall as well as in the mediastinum. Air is seen in the anterior fat planes adjacent the heart. Air in the. pericardial sac. ED physician has reviewed this report. - EKG 2258 Cardiac Rate: NL - 66 BPM EKG Rhythm: Sinus Rhythm ST Segment: Normal Ectopy: None Summary of EKG Findings: EKG at 2258 reveals normal sinus rhythm with rate of 66 BPM, no acute changes, no ischemic changes. This EKG was reviewed and interpreted by Dr. Maurer at 2300 05/03/19. Course/Dx Course Of Treatment: 58-year-old male presents with abdominal bruising and distention. He states he had inguinal hernia surgery this morning. Went home. Over the course of the few hours he was at home he has had increasing swelling and bruising in his right abdomen. He states he called his surgeon, Dr. Rosas. She told him to present to the emergency room and she would meet him here. He had an episode of syncope upon arrival. He states the pain is minimal. On physical exam patient has ecchymosis and firm swelling in the area. CAT scan ordered. Patient seen by Dr. Rosas. She has seen the CAT scan and will take him back to the OR immediately. - Diagnoses Provider Diagnoses: Post-op bleeding - Physician Notifications Discussed Care of Patient With: Jeimy Rosas Time Discussed With Above Provider: 23:55 Instructed by Provider To: Admit As Inpatient Admit/Transition Orders Completed By ED Provider: Yes Discharge ED - Sign-Out/Discharge Documenting (check all that apply): Patient Departure - admitted All imaging exams completed and their final reports reviewed: Yes - Discharge Plan Condition: Stable Disposition: ADMITTED TO [facility] - Billing Disposition and Condition Condition: STABLE Disposition: Admitted to [facility] - Attestation Statements Document Initiated by Scribe: Yes Documenting Scribe: Manpreet García Provider For Whom Carmitaibe is Documenting (Include Credential): Zenia Maurer MD Scribe Attestation: Manpreet Castano, scribed for Zenia Maurer MD on 05/04/19 at 0128. Scribe Documentation Reviewed: Yes Provider Attestation: The documentation as recorded by the Manpreet fierro accurately reflects the service I personally performed and the decisions made by , Zenia Maurer MD Status of Scribe Document: Viewed
[2019-05-03 23:23] LABS: ABS Lymphocytes 1.2 10^3/ul (1.0-4.8); ABS Monocytes 0.7 10^3/ul (0-0.8); ABS Neutrophils 12.6 10^3/ul (1.5-7.7); Hematocrit 37 % (42-52); Hemoglobin 12.7 g/dL (14.0-18.0); Lymphocyte % 8.5 %; Mean Corpuscular HGB Conc 34 g/dL (31-36); Mean Corpuscular Hemoglobin 33 pg (27-31); Mean Corpuscular Volume 98 fL (80-94); Mean Platelet Volume 7.4 fL (7.4-10.4); Nucleated Red Blood Cells % 0.1; Platelet Count 281 10^3/uL (150-450); Red Blood Count 3.82 10^6 /uL (4.18-5.48); Red Cell Distribution Width 14 % (10-15); White Blood Count 14.6 10^3/uL (3.5-10.8)
[2019-05-03] MEDS ORDERED: Iodixanol* (CONTRAST) 320 MG/ML 100 ML SDV IV ONE (23:25)
[2019-05-03 23:30] LABS: INR 1.21 (0.82-1.09)
[2019-05-03 23:37] LABS: Calcium 9.3 mg/dL (8.6-10.3); EGFR African American 108.4 (>60); EGFR Non-African American 89.6 (>60)
[2019-05-03 23:40] LABS: Troponin I 0.01 ng/mL (<0.03)
--- OUTSIDE RECORDS SUMMARY | 2019-05-03 23:40 | XMS REPORT | Continuity of Care Document ---
:1960 External Reference #:[id number] Author Name Roseann Anaya NP (transmitted by agent of provider Fam Kim) Address [address] [facility] [place] [address] Care Team Providers Name Role Phone Warren Rosen MD - Internal Care Team Information Director Social Medicine Gibran Clemons MD - Sports Medicine Care Team Information Director Social Efe Bob MD - Neurology Care Team Information Director Social [phone] Peyton Perez Msed, RD, Ches - Care Team Information Director Social Solder Making Laborer Svetlana Rapp M.D. - Family Medicine Care Team Information Director Social Problems Active Problems Provider Date Atypical absence seizure Warren Rosen M.D.,FACP Onset: 06/11/2015 Pure hypercholesterolemia Warren Rosen M.D.,FACP Onset: 02/19/2010 Impaired fasting glycaemia Warren Rosen M.D.,FACP Onset: 02/19/2010 Morbid obesity Warren Rosen M.D.,FACP Onset: 02/19/2010 Vitamin D deficiency Warren Rosen M.D.,FACP Onset: 03/25/2010 Social History Type Date Description Comments Sex Unknown Tobacco Use Start: Unknown Never Smoked Cigarettes ETOH Use Rarely consumes alcohol Recreational Drug Use Denies Drug Use Tobacco Use Start: Unknown Patient has never smoked Smoking Status Reviewed: 04/18/19 Patient has never smoked Exercise Type/Frequency Exercises regularly Allergies, Adverse Reactions, Alerts Active Allergies Reaction Severity Comments Date Penicillins Urticaria 02/19/2010 Medications Active Medications SIG Qnty Indications Ordering Provider Date Oxycodone-Acetaminoph 1 tab by mouth 8tabs Roseann Mesa 04/18/2019 en every 6 hours as BhanukenÁLVARO valencia 5-325mg Tablets needed Multi Vitamin 1 by mouth every Unknown Tablets day Coq10 1 by mouth every Unknown 200mg Capsules day Fish Oil 1.3g 1 capsule by Unknown mouth daily Ortho-Biotic 1 capsule by Unknown mouth daily Magnesium 1 tab daily Unknown 250mg Tablets Glucosamine 1 tab daily Unknown Chondroitin 1500 Complex 1500Com Capsules Immunizations Description No Information Available Vital Signs Date Vital Result Comment 04/18/2019 2:03pm Height 72 inches 6'0" Weight 190.00 lb Heart Rate 72 /min BP Systolic Sitting 108 mmHg BP Diastolic Sitting 72 mmHg Respiratory Rate 16 /min Body Temperature 97.4 F BMI (Body Mass Index) 25.8 kg/m2 03/20/2019 1:36pm Height 72 inches 6'0" Weight 196.00 lb Heart Rate 66 /min BP Systolic Sitting 110 mmHg BP Diastolic Sitting 72 mmHg Respiratory Rate 12 /min Body Temperature 97.5 F BMI (Body Mass Index) 26.6 kg/m2 Results Test Acquired Date Facility Test Result H/L Range Note Testosterone 04/02/2019 [facility] Testosterone 852 ng/dL 240 -950 [address] [place] [address] [phone] Free Testosterone ng/dl 7.67 ng/dL 3.87-14.7 2 Bioavailable Testosterone 64 ng/dL 50-190 3 CBC Auto 10/24/2018 [facility] White Blood 3.7 10^3/uL Normal 3.5-10.[address] [place] [address] [phone] Red Blood Count 4.75 10^6/uL Normal 4.18-5.48 Hemoglobin 15.3 g/dL Normal 14.0-18.0 Hematocrit 44 % Normal 42-52 Mean Corpuscular Volume 93 fL Normal 80-94 Mean Corpuscular Hemoglobin 32 pg High 27-31 Mean Corpuscular HGB Conc 35 g/dL Normal 31-36 Red Cell Distribution Width 15 % Normal 10.5-15 Platelet Count 202 10^3/uL Normal 150-450 Mean Platelet Volume 7.8 fL Normal 7.4-10.4 Abs Neutrophils 1.8 10^3/uL Normal 1.5-7.7 Abs Lymphocytes 1.5 10^3/uL Normal 1.0-4.8 Abs Monocytes 0.3 10^3/uL Normal 0-0.8 Abs Eosinophils 0.0 10^3/uL Normal 0-0.6 Abs Basophils 0.0 10^3/uL Normal 0-0.2 Abs Nucleated RBC 0.0 10^3/uL Granulocyte % 49.8 % Lymphocyte % 39.8 % Monocyte % 8.6 % Eosinophil % 1.2 % Basophil % 0.6 % Nucleated Red Blood Cells % 0.1 Retic Count 10/24/2018 [facility] Retic Count 0.7 % Normal 0.5 -1.[address] [place] [address] [phone] Corrected Retic Count 0.7 % Normal 0.5-1.5 Maturation Factor Retic 1.0 Retic Index 0.70 Mean Retic Volume 119.8 Immature Retic Fraction 0.33 RBC Retic Count 4.75 10^6/uL Normal 4.18-5.48 Hematocrit for Retic CNT 44 % Normal 42-52 Laboratory test 10/24/2018 [facility] Vitamin B12 313 pg/mL Normal 180-914 [address] [place] [address] [phone] Methylmalonic Acid Mma 0.14 nmol/mL <=0.40 5 1 ADDITIONAL INFORMATION Testing performed by Liquid Chromatography-Tandem Mass Spectrometry (LC-MS/MS). This test was developed and its performance characteristics determined by [facility] in a manner consistent with CLIA requirements. This test has not been cleared or approved by the U.S. Food and Drug Administration. 2 ADDITIONAL INFORMATION Testing performed by Equilibrium Dialysis. This test was developed and its performance characteristics determined by [facility] in a manner consistent with CLIA requirements. This test has not been cleared or approved by the U.S. Food and Drug Administration. 3 ADDITIONAL INFORMATION Testing performed by Differential Precipitation. This test was developed and its performance characteristics determined by [facility] in a manner consistent with CLIA requirements. This test has not been cleared or approved by the U.S. Food and Drug Administration. Test Performed by: [facility] [address] [place] [address] Head Orthopedic Team Physician: Jj Mckinley M.D. Ph.D.; CLIA# [id number] 4 Normal Range 180 to 914 Indeterminate Range 145 to 180 Deficient Range <145 5 ADDITIONAL INFORMATION This test was developed and its performance characteristics determined by [facility] in a manner consistent with CLIA requirements. This test has not been cleared or approved by the U.S. Food and Drug Administration. Test Performed by: [facility] - [address] [address] Procedures Date Code Description Status 11/17/2018 67556 EKG Tracing & Interpretation Completed Medical Devices Description No Information Available Encounters Type Date Location Provider Dx Diagnosis Office Visit 03[facility] Jeimy Rosas MD K40.90 Unil inguinal 1:30p Of Chief Ophthalmic Technician hernia, w/o obst or gangr, not spcf as recur Office Visit 03/12/2019 [facility] Internal Svetlana Rapp MD I26.99 Other pulmonary 11:40a Medicine - Ccmob embolism without acute cor pulmonale K40.90 Unil inguinal hernia, w/o obst or gangr, not spcf as recur R68.82 Decreased libido Office Visit 11/17/2018 11:00a [facility] Alayna Manning R42 Dizziness and Goyo Queen giddiness I26.99 Other pulmonary embolism without acute cor pulmonale I95.1 Orthostatic hypotension R00.1 Bradycardia, unspecified Z82.49 Family hx of ischem heart dis and oth dis of the circ sys R94.31 Abnormal electrocardiogram [ECG] [EKG] Assessments Date Code Description Provider 04/18/2019 K40.90 Unilateral inguinal hernia, without Roseann Anaya NP obstruction or gangrene, not specified as recurrent 04/18/2019 Z01.818 Encounter for other preprocedural Roseann Anaya NP examination 03/29/2019 K40.90 Unilateral inguinal hernia, without Jeimy Rosas MD obstruction or gangrene, not specified as recurrent 03/20/2019 K40.90 Unilateral inguinal hernia, without Jeimy Rosas MD obstruction or gangrene, not specified as recurrent 03/12/2019 I26.99 Other pulmonary embolism without acute Svetlana Rapp MD cor pulmonale 03/12/2019 K40.90 Unilateral inguinal hernia, without Svetlana Rapp MD obstruction or gangrene, not specified as recurrent 03/12/2019 R68.82 Decreased libido Svetlana Rapp MD 11/17/2018 R42 Dizziness and giddiness Alayna Queen M.D. 11/17/2018 I26.99 Other pulmonary embolism without acute Alayna Queen M.D. cor pulmonale 11/17/2018 I95.1 Orthostatic hypotension Alayna Queen M.D. 11/17/2018 R00.1 Bradycardia, unspecified Alayna Queen M.D. 11/17/2018 Z82.49 Family history of ischemic heart Alayna Queen M.D. disease and other diseases 11/17/2018 R94.31 Abnormal electrocardiogram [ECG] [EKG] Alayna Queen M.D. Plan of Treatment Future Appointment(s):05/02/2019 9:30 am - Tania Borrero MD at [facility] Internal Medicine - [facility]05/14/2019 2:00 pm - Roseann Anaya NP at [facility]05/03/2019 7:45 am - Alejo Ledbetter MD, FACS at [facility]05/03/2019 7:45 am - Jeimy Rosas MD at [facility]04/18/2019 - Roseann Anaya, NPK40.90 Unilateral inguinal hernia, without obstruction or gangrene, not specified as recurrentFollow up:POSTOP Z01.818 Encounter for other preprocedural examination Functional Status Description No Information Available Mental Status Description No Information Available Referrals Refer to Dr Reason for Referral Status Appt Date Jeimy Rosas MD pt with R inguinal hernia Sent 03/20/[address] [place] [address] [address] [place], [place] [address] [phone]
--- OUTSIDE RECORDS SUMMARY | 2019-05-03 23:40 | XMS REPORT | Continuity of Care Document ---
:1960 External Reference #:[id number] Author Name Svetlana Rapp MD (transmitted by agent of provider Fam Kim) Address [address] [facility], [place] [address] Care Team Providers Name Role Phone Warren Rosen MD - Internal Care Team Information Road Hogger Operator Medicine Gibran Clemons MD - Sports Medicine Care Team Information Road Hogger Operator Efe Bob MD - Neurology Care Team Information Road Hogger Operator [phone] Peyton Perez Msed, RD, Ches - Care Team Information Road Hogger Operator [phone] Apparel Rental Clerk Svetlana Rapp M.D. - Family Medicine Care Team Information Road Hogger Operator Problems Active Problems Provider Date Atypical absence seizure Warren Rosen M.D.,FACP Onset: 06/11/2015 Pure hypercholesterolemia Warren Rosen M.D.,FACP Onset: 02/19/2010 Impaired fasting glycaemia Warren Rosne M.D.,FACP Onset: 02/19/2010 Morbid obesity Warren Rosen M.D.,FACP Onset: 02/19/2010 Vitamin D deficiency Warren Rosen M.D.,FACP Onset: 03/25/2010 Social History Type Date Description Comments Sex Unknown Tobacco Use Start: Unknown Never Smoked Cigarettes ETOH Use Rarely consumes alcohol Recreational Drug Use Denies Drug Use Tobacco Use Start: Unknown Patient has never smoked Smoking Status Reviewed: 03/12/19 Patient has never smoked Exercise Type/Frequency Does not exercise Allergies, Adverse Reactions, Alerts Active Allergies Reaction Severity Comments Date Penicillins Urticaria 02/19/2010 Medications Active Medications SIG Qnty Indications Ordering Provider Date Eliquis Starter Pack 1 by mouth twice Unknown 5mg a day Tablets Multi Vitamin 1 by mouth every Unknown Tablets day Coq10 1 by mouth every Unknown 200mg Capsules day Fish Oil 1.3g 1 capsule by Unknown mouth daily Ortho-Biotic 1 capsule by Unknown mouth daily Magnesium 1 tab daily Unknown 250mg Tablets Glucosamine 1 tab daily Unknown Chondroitin 1500 Complex 1500Com Capsules Immunizations Description No Information Available Vital Signs Date Vital Result Comment 03/12/2019 11:49am Height 72 inches 6'0" Weight 201.00 lb Heart Rate 57 /min BP Systolic Sitting 101 mmHg Rue reg cuff BP Diastolic Sitting 66 mmHg Rue reg cuff O2 % BldC Oximetry 97 % BMI (Body Mass Index) 27.3 kg/m2 11/17/2018 10:29am Height 72 inches 6'0" Weight 236.00 lb with shoes Heart Rate 58 /min BP Systolic Sitting 102 mmHg BP Diastolic Sitting 74 mmHg BP Systolic Standing 90 mmHg pt reported dizziness upon standing BP Diastolic Standing 70 mmHg pt reported dizziness upon standing BP Systolic Recheck 110 mmHg BP Diastolic Recheck 74 mmHg BMI (Body Mass Index) 32.0 kg/m2 Ejection Fraction 60-65% Echocardiogram 07/16/2018 Results Test Date Facility Test Result H/L Range Note CBC Auto 10/24/2018 [facility] White Blood 3.7 10^3/uL Normal 3.5-10.[address] [place] [address] [phone] Red Blood Count 4.75 10^6/uL Normal 4.18-5.48 [...] Blood Cells % 0.1 Retic Count 10/24/2018 [facility] Retic Count 0.7 % Normal 0.5 -1.5 [address] [place] [address] [phone] Corrected Retic Count 0.7 % Normal 0.5-1.5 Maturation Factor Retic 1.0 Retic Index 0.70 Mean Retic Volume 119.8 Immature Retic Fraction 0.33 RBC Retic Count 4.75 10^6/uL Normal 4.18-5.48 Hematocrit for Retic CNT 44 % Normal 42-52 Laboratory test 10/24/2018 [facility] Vitamin B12 313 pg/mL Normal 180-914 1 finding [address] [place] [address] [phone] Methylmalonic Acid Mma 0.14 nmol/mL <=0.40 2 Protime W/ Inr 10/11/2018 [facility] Prothrombin Time 20.6 Inr 1.7 Protime W/ Inr 09/27/2018 [facility] Prothrombin Time 29.2 Inr 2.4 Protime W/ Inr 09/19/2018 [facility] Prothrombin Time 24.0 Inr 2.0 1 Normal Range 180 to 914 Indeterminate Range 145 to 180 Deficient Range <145 2 ADDITIONAL INFORMATION This test was developed and its performance characteristics determined by [facility] in a manner consistent with CLIA requirements. This test has not been cleared or approved by the U.S. Food and Drug Administration. Test Performed by: [facility] - [address] [address] Procedures Date Code Description Status 11/17/2018 87014 EKG Tracing & Interpretation Completed Medical Devices Description No Information Available Encounters Type Date Location Provider Dx Diagnosis Office Visit 11/17/2018 [facility] Alayna Manning R42 Dizziness and 11:00a Goyo Queen giddiness I26.99 Other pulmonary embolism without acute cor pulmonale I95.1 Orthostatic hypotension R00.1 Bradycardia, unspecified Z82.49 Family hx of ischem heart dis and oth dis of the circ sys R94.31 Abnormal electrocardiogram [ECG] [EKG] Office Visit 10/11/2018 1:40p [facility] Internal Svetlana Rapp MD R42 Dizziness and Medicine - Ccmob giddiness Z79.01 remote 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 10/11/2018 R42 Dizziness and giddiness Svetlana Rapp MD 10/11/2018 Z79.01 correction (current) use of Nurse Visit A anticoagulants 10/11/2018 Z79.01 correction (current) use of Svetlana Rapp MD anticoagulants 10/11/2018 I26.99 Other pulmonary embolism without acute Nurse Visit A cor pulmonale 09/27/2018 Z79.01 remote computer terminal operator (current) use of Nurse Visit A anticoagulants 09/27/2018 I26.99 Other pulmonary embolism without acute Nurse Visit A cor pulmonale 09/19/2018 Z79.01 correction (current) use of Nurse Visit A anticoagulants 09/19/2018 I26.99 Other pulmonary embolism without acute Nurse Visit A cor pulmonale Plan of Treatment 03/12/2019 - Svetlana Rapp MDI26.99 Other pulmonary embolism without acute cor pulmonaleComments:I agree with discontinuing WgbptkiT96.90 Unilateral inguinal hernia, without obstruction or gangrene, not specified as recurrentReferral:Jeimy Rosas MD, Surgery,GdsnvfiM40.82 Decreased libidoNew Labs:Testosterone Profile, Ordered: 03/12/19 Functional Status Description No Information Available Mental Status Description No Information Available Referrals Refer to Reason for Referral Status Appt Date Jeimy Rosas MD pt with R inguinal hernia Created [address] [facility] [address] [place], [place] [address] [phone] Angeles Montgomery MD healthy male experiencing sudden dizzy spells with Sent low BP, new onset of split S2 [address] [place] [address] [phone] Duane Hutchinson MD Please evaluate this patient with Closed increasingly frequent episode of dysphagia and odynophagia. Thyroid ultrasound is normal. His general medical history is unremarkable except for an unprovoked pulmonary embolism in July of this year. He has a family history of esophageal cancer in his father. [address] [place] [address] [phone]
--- OUTSIDE RECORDS SUMMARY | 2019-05-03 23:40 | XMS REPORT | Continuity of Care Document ---
:1960 External Reference #:[id number] Author Name Jeimy Rosas MD (transmitted by agent of provider Linh Landin) Address [address] [facility], [place] [address] Care Team Providers Name Role Phone Warren Rosen MD - Internal Care Team Information Hot Metal Crane Operator Medicine Gibran Clemons MD - Sports Medicine Care Team Information Hot Metal Crane Operator Efe Bob MD - Neurology Care Team Information Hot Metal Crane Operator [phone] Peyton Perez Msed, RD, Ches - Care Team Information Hot Metal Crane Operator Bench Mechanic Svetlana Rapp M.D. - Family Medicine Care Team Information Hot Metal Crane Operator Problems Active Problems Provider Date Atypical [...] Patient has never smoked Smoking Status Reviewed: 03/20/19 Patient has never smoked Exercise Type/Frequency Exercises regularly Allergies, Adverse Reactions, Alerts Active Allergies Reaction Severity Comments Date Penicillins Urticaria 02/19/2010 Medications Active Medications SIG Qnty Indications Ordering Provider Date Multi Vitamin 1 by mouth every Unknown Tablets day Coq10 1 by mouth every Unknown 200mg Capsules day Fish Oil 1.3g 1 capsule by Unknown mouth daily Ortho-Biotic 1 capsule by Unknown mouth daily Magnesium 1 tab daily Unknown 250mg Tablets Glucosamine 1 tab daily Unknown Chondroitin 1500 Complex 1500Com Capsules Immunizations Description No Information Available Vital Signs Date Vital Result Comment 03/20/2019 1:36pm Height 72 inches 6'0" Weight 196.00 lb Heart Rate 66 /min BP Systolic Sitting 110 mmHg BP Diastolic Sitting 72 mmHg Respiratory Rate 12 /min Body Temperature 97.5 F BMI (Body Mass Index) 26.6 kg/m2 03/12/2019 11:49am Height 72 inches 6'0" Weight 201.00 lb Heart Rate 57 /min BP Systolic Sitting 101 mmHg Rue reg cuff BP Diastolic Sitting 66 mmHg Rue reg cuff O2 % BldC Oximetry 97 % BMI (Body Mass Index) 27.3 kg/m2 Results Test Date Facility Test Result H/L Range Note CBC Auto 10/24/2018 [facility] White Blood 3.7 10^3/uL Normal 3.5-10.[address] [place] [address] [phone] Red Blood Count 4.75 10^6/uL Normal 4.18-5.48 [...] Blood Cells % 0.1 Retic Count 10/24/2018 [facility] Retic Count 0.7 % Normal 0.5 -1.5 [address] [place] [address] [phone] Corrected Retic Count 0.7 % Normal 0.5-1.5 Maturation Factor Retic 1.0 Retic Index 0.70 Mean Retic Volume 119.8 Immature Retic Fraction 0.33 RBC Retic Count 4.75 10^6/uL Normal 4.18-5.48 Hematocrit for Retic CNT 44 % Normal 42-52 Laboratory test 10/24/2018 [facility] Vitamin B12 313 pg/mL Normal 180-914 1 finding [address] [place] [address] [phone] Methylmalonic Acid Mma 0.14 nmol/mL <=0.40 2 Protime W/ Inr 10/11/2018 [facility] In House Prothrombin Time 20.6 Inr 1.7 Protime W/ Inr 09/27/2018 [facility] Prothrombin Time 29.2 Inr 2.4 Protime W/ Inr 09/19/2018 [facility] In House Prothrombin Time 24.0 Inr 2.0 1 Normal Range 180 to 914 Indeterminate Range 145 to 180 Deficient Range <145 2 ADDITIONAL INFORMATION This test was developed and its performance characteristics determined by [facility] in a manner consistent with CLIA requirements. This test has not been cleared or approved by the U.S. Food and Drug Administration. Test Performed by: [facility] - [address] [address] Procedures Date Code Description Status 11/17/2018 48735 EKG Tracing & Interpretation Completed Medical Devices Description No Information Available Encounters Type Date Location Provider Dx Diagnosis Office Visit 03/12/2019 [facility] Svetlana Rapp MD I26.99 Other pulmonary 11:40a Medicine - Ccmob embolism without acute cor pulmonale K40.90 Unil inguinal hernia, w/o obst or gangr, not spcf as recur R68.82 Decreased libido Office Visit 11/17/2018 11:00a [facility] Alayna Leyva Dizziness and Goyo Queen giddiness I26.99 Other pulmonary embolism without acute cor pulmonale I95.1 Orthostatic hypotension R00.1 Bradycardia, unspecified Z82.49 Family hx of ischem heart dis and oth dis of the circ sys R94.31 Abnormal electrocardiogram [ECG] [EKG] Office Visit 10/11/2018 1:40p [facility] Internal Svetlana Rapp MD R42 Dizziness and Medicine - Ccmob giddiness Z79.01 jail (current) use of anticoagulants Assessments Date Code Description Provider 03/20/2019 K40.90 Unilateral inguinal hernia, without Jeimy [...] and giddiness Svetlana Rapp MD 10/11/2018 Z79.01 jail (current) use of Nurse Visit A anticoagulants 10/11/2018 Z79.01 computer terminal operator (current) use of Svetlana Rapp MD anticoagulants 10/11/2018 I26.99 Other pulmonary embolism without acute Nurse Visit A cor pulmonale 09/27/2018 Z79.01 jail (current) use of Nurse Visit A anticoagulants 09/27/2018 I26.99 Other pulmonary embolism without acute Nurse Visit A cor pulmonale 09/19/2018 Z79.01 computer terminal operator (current) use of Nurse Visit A anticoagulants 09/19/2018 I26.99 Other pulmonary embolism without acute Nurse Visit A cor pulmonale Plan of Treatment 03/20/2019 - Jeimy Rosas MDK40.90 Unilateral inguinal hernia, without obstruction or gangrene, not specified as recurrentFollow up:We will schedule you for surgery, which will be a laparoscopic right inguinal hernia repair with mesh. Please return to see me 2 weeks after surgery for a post operative visit. Functional Status Description No Information Available Mental Status Description No Information Available Referrals Refer to Dr Reason for Referral Status Appt Date Jeimy Rosas MD pt with R inguinal hernia Sent 03/20/2019 [address] [place], [place] [address] [phone] Angeles Montgomery MD healthy male experiencing sudden dizzy spells with Sent low BP, new onset of split S2 [address] [place] [address] [phone] Duane Hutchinson MD Please evaluate this patient with Closed increasingly frequent episode of dysphagia and odynophagia. Thyroid ultrasound is normal. His general medical history is unremarkable except for an unprovoked pulmonary embolism in July of this year. He has a family history of esophageal cancer in his father. [address] [place] [address] [phone]
--- OUTSIDE RECORDS SUMMARY | 2019-05-03 23:40 | XMS REPORT | Continuity of Care Document ---
:1960 External Reference #:[id number] Author Name Tania Borrero MD (transmitted by agent of provider Lore Arriaga) Address [address] [facility] [place] [address] Care Team Providers Name Role Phone Warren Rosen MD - Internal Care Team Information Formula Clerk [phone] Medicine Gibran Clemons MD - Sports Medicine Care Team Information Formula Clerk Efe Bob MD - Neurology Care Team Information Formula Clerk [phone] Peyton Perez Msed, RD, [place] - Care Team Information Formula Clerk Supervising Airplane Pilot Svetlana Rapp M.D. - Family Medicine Care Team Information Formula Clerk Problems Active Problems Provider Date Atypical absence [...] Patient has never smoked Smoking Status Reviewed: 05/02/19 Patient has never smoked Exercise Type/Frequency Exercises regularly Allergies, Adverse Reactions, Alerts Active Allergies Reaction Severity Comments Date Penicillins Urticaria 02/19/2010 Medications Active Medications SIG Qnty Indications Ordering Provider Date Oxycodone-Acetaminoph 1 tab by mouth 8tabs Roseann Mesa 04/18/2019 en every 6 hours as ÁLVARO Anaya 5-325mg Tablets needed Multi Vitamin 1 by [...] Available Vital Signs Date Vital Result Comment 05/02/2019 9:36am Height 72 inches 6'0" Weight 194.00 lb Heart Rate 53 /min BP Systolic Sitting 109 mmHg BP Diastolic Sitting 73 mmHg Body Temperature 96.5 F O2 % BldC Oximetry 98 % BMI (Body Mass Index) 26.3 kg/m2 04/18/2019 2:03pm Height 72 inches 6'0" Weight 190.00 lb Heart Rate 72 /min BP Systolic Sitting 108 mmHg BP Diastolic Sitting 72 mmHg Respiratory Rate 16 /min Body Temperature 97.4 F BMI (Body Mass Index) 25.8 kg/m2 Results Test Acquired Date Facility Test Result H/L Range Note Testosterone 04/02/2019 [facility] Testosterone 852 ng/dL 240 -950 [address] [place] [address] [phone] Free Testosterone ng/dl 7.67 ng/dL 3.87-14.7 2 Bioavailable Testosterone 64 ng/dL 50-190 3 1 ADDITIONAL INFORMATION Testing performed by Liquid Chromatography-Tandem Mass Spectrometry (LC-MS/MS). This test was developed and its performance characteristics determined by [facility] in a manner consistent with CLIA requirements. This test has not been cleared or approved by the U.S. Food and Drug Administration. 2 ADDITIONAL INFORMATION Testing performed by Equ[facility] Dialysis. This test was developed and its performance characteristics determined by [facility] in a manner consistent with CLIA requirements. This test has not been cleared or approved by the U.S. Food and Drug Administration. 3 ADDITIONAL INFORMATION Testing performed by Differential Precipitation. This test was developed and its performance characteristics determined by [facility] in a manner consistent with CLIA requirements. This test has not been cleared or approved by the U.S. Food and Drug Administration. Test Performed by: [facility] [address] [place] [address] Senior Architect: Jj Mckinley M.D. Ph.D.; CLIA# [id number] Procedures Date Code Description Status 11/17/2018 53316 EKG Tracing & Interpretation Completed Medical Devices Description No Information Available Encounters Type Date Location Provider Dx Diagnosis Office Visit [facility] MD K40.90 Unil inguinal 1:30p Of [facility] hernia, w/o obst or gangr, not spcf as recur Office Visit 03/12/2019 [facility] Svetlana Rapp MD I26.99 Other pulmonary 11:40a Medicine - C[facility] embolism without acute cor pulmonale K40.90 Unil inguinal hernia, w/o obst or gangr, not spcf as recur R68.82 Decreased libido Office Visit 11/17/2018 11:00a [facility] taedy Manning R42 Dizziness and Goyo Queen giddiness I26.99 Other pulmonary embolism without acute cor pulmonale I95.1 Orthostatic hypotension R00.1 Bradycardia, unspecified Z82.49 Family hx of ischem heart dis and oth dis of the circ sys R94.31 Abnormal electrocardiogram [ECG] [EKG] Assessments Date Code Description Provider 05/02/2019 R68.82 Decreased libido Tania Borrero MD 05/02/2019 I10 Essential (primary) hypertension Tania Borrero MD 05/02/2019 K40.90 Unilateral inguinal hernia, without Tania Borrero MD obstruction or gangrene, not specified as recurrent 05/02/2019 I26.99 Other pulmonary embolism without acute Tania Borrero MD cor pulmonale 04/18/2019 K40.90 Unilateral inguinal hernia, without Roseann [...] Alayna Queen M.D. Plan of Treatment Future Appointment(s):10/05/2019 4:00 pm - [facility] [place] [facility] - Roseann Anaya NP at [facility]05/02/2019 - Tania Borrero, MDR68.82 Decreased libidoReferral :Osmar Gallegos MD, [id number] Essential (primary) jhotpztfspkyF79.90 Unilateral inguinal hernia, without obstruction or gangrene, not specified as hhndoblayI07.99 Other pulmonary embolism without acute cor pulmonale Functional Status Description No Information Available Mental Status Description No Information Available Referrals Refer to Dr Reason for Referral Status Appt Date Omsar Gallegos MD Created [address] [place] [address] [place] [address] [phone] Jeimy Rosas MD pt with R inguinal hernia Sent 03/20/2019 [address] [place], [place] [id number] [phone]
[2019-05-03 23:43] LABS: Potassium 4.7 mmol/L (3.5-5.0)
[2019-05-03] MEDS ORDERED: NS 0.9% 1000 ML** 1,000 ML IV ONE ×2 (23:55→23:56)
[2019-05-04] MEDS ORDERED: Bupivacaine 0.25% SDV* 30 ML ONE (00:27)
[2019-05-04] MEDS ORDERED: KETAMINE HCL* 50 MG/ML 10 ML VIAL ONE (00:34)
[2019-05-04] MEDS ORDERED: fentaNYL* 50 MCG/ML 2 ML VIAL (100 MCG VIAL) ONE (00:34)
[2019-05-04] MEDS ORDERED: Midazolam* 1 MG/ML 5 ML VIAL (5 MG) ONE (00:34)
[2019-05-04] MEDS ORDERED: Lidocaine 1% INJ* 10 MG/ML 30 ML SDV ONE (00:35)
[2019-05-04] MEDS ORDERED: Clindamycin 900 MG/D5W BAG(*) 900 MG/50 ML BAG IVPB ONE (00:39)
[2019-05-04] MEDS ORDERED: Famotidine IV* 10 MG/ML 2 ML (20 mg) ONE (00:44)
[2019-05-04] MEDS ORDERED: HYDROmorphone INJ* 0.5 MG/0.5 ML SYRINGE IV SLOW PU PRN (00:50)
[2019-05-04] MEDS ORDERED: Ondansetron INJ* 2 MG/ML VIAL IV PRN ×2 (00:50→02:30)
[2019-05-04] MEDS ORDERED: Acetaminophen TAB* 325 MG PO PRN (00:50)
[2019-05-04] MEDS ORDERED: oxyCODONE/Acetamin 5/325 MG* TAB PO PRN ×2 (00:50→02:30)
[2019-05-04] MEDS ORDERED: Lactated Ringers 1000 ML Bag* 1,000 ML IV SCH (01:00)
[2019-05-04] MEDS ORDERED: Bupivacaine 0.5% W/EPI SDV* 10 ML VIAL INJ ONE (01:02)
--- NOTE | 2019-05-04 02:21 | BRIEFOPN ---
Brief Operative/Procedure Note - Operation Details Pre-Op Diagnosis: abdominal wall hematoma Post-Op Diagnosis: abdominal wall hematoma Procedures: evacuation of abdominal wall hematoma Surgeon(s)/Proceduralists: Jeimy Rosas Anesthesia: T[place] Findings: large abdominal wall hematoma and raw bleeding from rectus muscle
[2019-05-04] MEDS ORDERED: DiMENhydriNATE IV* 50 MG/ML VIAL IV PUSH PRN (02:30)
[2019-05-04] MEDS ORDERED: HYDROcodone/ACETAMIN 5-325 MG* 1 TAB PO PRN (02:30)
[2019-05-04] MEDS ORDERED: Naloxone* 0.4 MG/ML 1 ML VIAL IV PRN (02:30)
[2019-05-04] MEDS ORDERED: fentaNYL* 50 MCG/ML 2 ML VIAL (100 MCG VIAL) IV PRN (02:30)
--- NOTE | 2019-05-04 02:46 | HP ---
HISTORY AND PHYSICAL: DATE OF ADMISSION: 05/04/19 SERVICE: General Surgery. ATTENDING SURGEON: Dr. Jeimy Rosas. REASON FOR ADMISSION: Hematoma postop laparoscopic right inguinal hernia repair with mesh. HISTORY OF PRESENT ILLNESS: Mr. Moffett is a very pleasant 58-year-old gentleman, who had presented for an elective laparoscopic right inguinal hernia repair earlier this morning. The surgery was notable for dissecting initially in the subcutaneous plane until it was recognized and then correct retrorectus space was identified and entered. The remainder of the surgery was uneventful and the patient was discharged from the recovery room in good condition earlier this morning. He says, however, he was doing well until later this afternoon when he said when he got up, he noticed that he had a bulge in his right abdominal wall. He said that it was not very painful, but he noticed that there started to be more pressure and he started to have more pain. So, he called the answering service and I spoke to him and asked him to come into the emergency room for evaluation. He said after speaking to me he fainted. I met him in the emergency room, where he was found to have a bulge of his abdominal wall in the right side that appeared to be a hematoma. He then underwent an abdominal CT scan showing large hematoma above the rectus sheath. Therefore, he will be taken to the operating room for surgery urgently and then admitted postoperatively. PAST MEDICAL HISTORY: Vitamin D deficiency and a history of a pulmonary embolus. PAST SURGICAL HISTORY: None. MEDICATIONS: The patient takes many vitamins for his home medications. ALLERGIES: PENICILLIN. FAMILY HISTORY: None. SOCIAL HISTORY: The patient is a nonsmoker. REVIEW OF SYSTEMS: Negative except for as noted in the HPI. PHYSICAL EXAMINATION GENERAL: This is a well-appearing man, lying comfortably in bed, in no apparent distress. VITAL SIGNS: Temperature is 99, heart rate is 57, respiratory rate is 18, O2 sat is 100% O2 on room air, blood pressure is 101/64. ABDOMEN: Soft, but there is a palpable mass/hematoma with bruising along the right lateral side wall, that is slightly tender to palpation. DIAGNOSTIC STUDIES/LAB DATA: White blood cell count is 14.6, hemoglobin is 12.7, hematocrit 37, platelets 281. Coag: INR is 1.21. Sodium is 136, potassium is 4.7, chloride is 104, CO2 is 25, BUN 15, creatinine 0.88, glucose 150, lactic acid is 2.4. Troponin is 0.01. Radiology: CT abdomen and pelvis was reviewed by me. He has an evidence of a hematoma above his rectus sheath on the right side and there is subcutaneous air present on the right abdominal wall. Final read is pending. ASSESSMENT AND PLAN: Mr. Moffett is a very pleasant 58-year-old gentleman, who underwent a laparoscopic right inguinal hernia repair, totally extraperitoneal, this morning he presented with a large hematoma of his abdominal wall, but it looks to be in the subcutaneous space above the rectus muscle. It is uncertain why he developed this this afternoon, it could be some delayed bleeding from this delayed space. Currently his Hct is 37 but I suspect it is actually lower. Given that the hematoma is rather large and it seems to be expanding, he must go to the operating room immediately for evacuation of this blood. Informed consent was obtained for this evacuation. He understood that the risks include, but are not limited to, bleeding, infection, injury to nearby structures, and possibility of wound infection. He understands and he wishes to proceed. I will take him to the operating room and then admit him afterwards. [id number]/[facility] #: [id number] SANTOS
[2019-05-04 06:49] LABS: Hematocrit 29 % (42-52); Hemoglobin 10.2 g/dL (14.0-18.0); Mean Corpuscular HGB Conc 36 g/dL (31-36); Mean Corpuscular Hemoglobin 34 pg (27-31); Mean Corpuscular Volume 96 fL (80-94); Mean Platelet Volume 7.1 fL (7.4-10.4); Platelet Count 181 10^3/uL (150-450); Red Blood Count 2.97 10^6 /uL (4.18-5.48); Red Cell Distribution Width 14 % (10-15)
--- NOTE | 2019-05-04 08:37 | OP ---
DATE OF OPERATION: 05/04/19 - ROOM #333 DATE OF : 64 SERVICE: General Surgery. ATTENDING SURGEON: Jeimy Rosas MD STRIP ROLLER: None. ANESTHESIOLOGIST: Dr. Pito Phelan. ANESTHESIA: Local/MAC. PRE-OP DIAGNOSIS: Abdominal wall hematoma. POST-OP DIAGNOSIS: Abdominal wall hematoma. OPERATION TITLE: Evacuation of abdominal wall hematoma. INDICATION FOR PROCEDURE: Mr. Moffett is very pleasant 58-year-old gentleman who underwent a laparoscopic right inguinal hernia repair on 05/03/19. He presented to the emergency room in the evening after surgery with complaints of an enlarging abdominal wall mass, it was noted to be a hematoma on CT scan that was in the subcutaneous tissue above the rectus muscle. He therefore was taken to the operating room for evacuation of this hematoma. He understood the risks , benefits, and alternatives to the procedure. He wished to proceed. DESCRIPTION OF OPERATION: The patient was brought back to the operating room and placed on operating table in the supine position. Sequential compression devices were placed on bilateral lower extremities. DVT prophylaxis and antibiotics were administered. The patient underwent local/MAC anesthesia and a Marvin catheter was placed. His abdomen was prepped and draped in normal sterile fashion. A time out was performed verifying the patient name, date of and procedure to be performed. On exam the patient was noted to have a large abdominal wall protrusion over the right rectus muscle. 0.25% marcaine was infiltrated into the lower 5mm trocar incision and the surrounding subcutaneous tissue. The incision of his lower 5mm laparoscopic port site was opened and enlarged transversely approximately 5 cm. The skin was divided with a 10 blade and the subcutaneous tissue was divided with electrocautery. Once this was done, a large amount of hematoma was evacuated from the subcutaneous plane and around the rectus sheath. Approximately 200-300cc of dark blood clot was evacuated superiorly and inferiorly and the cavity was irrigated with warm saline. After this, it was noted that most of this bleeding was oozing from the raw surfaces of the rectus muscle over the space during his prior surgery. During his surgery in the morning, this space was entered inadvertently in an attempt to find the retrorectus space, so it appeared that there was just raw surface and raw muscle that have been bleeding. The muscle was cauterized and Surgicel was placed. The area was tightly packed with two Kerlix to allow this space to tamponade. After this, sterile dressing was placed over the wound. The patient was awoken and then he was taken to PACU in stable condition. At the end of the case, all counts were correct and I was present during the entirety of the case. [id number]/[facility] #: [id number] MTDD
--- NOTE | 2019-05-04 14:07 | PN ---
Progress Note - Progress Note Date of Service: 05/04/19 Note: Surgery Progress Note This note reflects my visit with the patient this morning. S: Patient feels well. He has very little pain and is comfortable. He is tolerating a diet. He is still waiting to use the restroom. O: Vital Signs - 24 hr 05/03/19 05/03/19 05/03/19 22:45 22:56 22:57 Temperature 99.0 F Pulse Rate 95 64 67 Respiratory 16 Rate Blood Pressure 72/50 92/65 (mmHg) O2 Sat by Pulse 98 99 100 Oximetry 05/03/19 05/03/19 05/03/19 23:00 23:02 23:07 Temperature Pulse Rate 66 61 67 Respiratory 17 20 14 Rate Blood Pressure 93/75 116/72 (mmHg) O2 Sat by Pulse 99 99 100 Oximetry 05/03/19 05/03/19 05/03/19 23:12 23:16 23:22 Temperature Pulse Rate 61 66 58 Respiratory 17 13 18 Rate Blood Pressure 95/72 104/78 101/64 (mmHg) O2 Sat by Pulse 100 100 100 Oximetry 05/03/19 05/03/19 05/03/19 23:37 23:42 23:47 Temperature Pulse Rate 78 75 71 Respiratory 32 14 16 Rate Blood Pressure 113/68 117/79 102/75 (mmHg) O2 Sat by Pulse 100 100 100 Oximetry 05/03/19 05/03/19 05/03/19 23:52 23:56 23:57 Temperature Pulse Rate 69 69 69 Respiratory 16 16 13 Rate Blood Pressure 108/74 102/71 107/69 (mmHg) O2 Sat by Pulse 100 100 100 Oximetry 05/04/19 05/04/19 05/04/19 00:00 00:02 00:07 Temperature Pulse Rate 67 79 74 Respiratory 13 18 20 Rate Blood Pressure 110/73 104/71 (mmHg) O2 Sat by Pulse 100 97 100 Oximetry 05/04/19 05/04/19 05/04/19 00:12 00:17 00:23 Temperature Pulse Rate 72 71 63 Respiratory 23 14 17 Rate Blood Pressure 109/70 109/65 105/74 (mmHg) O2 Sat by Pulse 98 99 98 Oximetry 05/04/19 05/04/19 05/04/19 00:27 00:30 02:15 Temperature 98.6 F 98.6 F 98.2 F Pulse Rate 65 66 Respiratory 16 12 Rate Blood Pressure 105/74 101/68 (mmHg) O2 Sat by Pulse 98 100 Oximetry 05/04/19 05/04/19 05/04/19 02:20 02:25 02:28 Temperature Pulse Rate 63 58 Respiratory 16 16 Rate Blood Pressure 96/64 105/60 (mmHg) O2 Sat by Pulse 95 99 Oximetry 05/04/19 05/04/19 05/04/19 02:30 02:43 02:55 Temperature 97.8 F Pulse Rate 60 70 Respiratory 16 18 Rate Blood Pressure 106/61 104/61 113/67 (mmHg) O2 Sat by Pulse 95 97 Oximetry 05/04/19 05/04/19 05/04/19 03:14 03:52 08:30 Temperature 97.6 F Pulse Rate 64 Respiratory 18 18 16 Rate Blood Pressure 108/61 (mmHg) O2 Sat by Pulse 96 Oximetry 05/04/19 05/04/19 05/04/19 08:32 09:39 10:32 Temperature 97.8 F Pulse Rate 71 Respiratory 16 16 16 Rate Blood Pressure 104/67 (mmHg) O2 Sat by Pulse 99 Oximetry 05/04/19 11:59 Temperature 97.9 F Pulse Rate 77 Respiratory 16 Rate Blood Pressure 112/77 (mmHg) O2 Sat by Pulse Oximetry Laboratory Results - last 24 hr 05/03/19 05/03/19 05/03/19 23:05 23:05 23:05 WBC 14.6 H RBC 3.82 L Hgb 12.7 L Hct 37 L MCV 98 H MCH 33 H MCHC 34 RDW 14 Plt Count 281 MPV 7.4 Neut % (Auto) 86.2 Lymph % (Auto) 8.5 [place] % (Auto) 5.1 Eos % (Auto) 0.0 Baso % (Auto) 0.2 Absolute Neuts (auto) 12.6 H Absolute Lymphs (auto) 1.2 Absolute Monos (auto) 0.7 Absolute Eos (auto) 0.0 Absolute Basos (auto) 0.0 Absolute Nucleated RBC 0.0 Nucleated RBC % 0.1 INR (Anticoag Therapy) Sodium 136 Potassium 4.7 Chloride 104 Carbon Dioxide 25 Anion Gap 7 BUN 15 Creatinine 0.88 Est GFR ( Amer) 108.4 Est GFR (Non-Af Amer) 89.6 BUN/Creatinine Ratio 17.0 Glucose 150 H Lactic Acid 2.4 H* Calcium 9.3 Troponin I 0.01 05/03/19 05/04/19 23:05 05:51 WBC 8.0 RBC 2.97 L Hgb 10.2 L Hct 29 L MCV 96 H MCH 34 H MCHC 36 RDW 14 Plt Count 181 MPV 7.1 L Neut % (Auto) Lymph % (Auto) [place] % (Auto) Eos % (Auto) Baso % (Auto) Absolute Neuts (auto) Absolute Lymphs (auto) Absolute Monos (auto) Absolute Eos (auto) Absolute Basos (auto) Absolute Nucleated RBC Nucleated RBC % INR (Anticoag Therapy) 1.21 H Sodium Potassium Chloride Carbon Dioxide Anion Gap BUN Creatinine Est GFR ( Amer) Est GFR (Non-Af Amer) BUN/Creatinine Ratio Glucose Lactic Acid Calcium Troponin I Intake & Output 05/03/19 05/04/19 05/04/19 22:59 06:59 14:59 Intake Total 3500 400 Output Total 0 Balance 3500 400 Weight 190 lb 190 lb Intake: IV Fluids 3500 LR 1500 NS 2000 Oral 0 400 Output: Urine 0 Other: Estimated Void Large Physical exam: Abdomen- soft, bulge present in RLQ where packing was placed. Lap incisions c/d /i, soft over pubis A/P: 58 M POD 1 from laparoscopic inguinal hernia repair with mesh, POD 0 from takeback for evacuation of abdominal wall hematoma. - Patient is doing well. Will change packing tomorrow to give 24 hours of tamponade on the raw surface of the muscle that was likely source of bleeding. - Will re check Hct this afternoon - OOB and ambulate - Regular diet and FU UOP
[2019-05-04 15:27] LABS: ABS Lymphocytes 1.8 10^3/ul (1.0-4.8); ABS Monocytes 0.5 10^3/ul (0-0.8); ABS Neutrophils 4.7 10^3/ul (1.5-7.7); Eosinophil % 0.2 %; Hematocrit 28 % (42-52); Hemoglobin 9.7 g/dL (14.0-18.0); Lymphocyte % 25.5 %; Mean Corpuscular HGB Conc 35 g/dL (31-36); Mean Corpuscular Hemoglobin 34 pg (27-31); Mean Corpuscular Volume 97 fL (80-94); Mean Platelet Volume 6.8 fL (7.4-10.4); Platelet Count 179 10^3/uL (150-450); Red Blood Count 2.86 10^6 /uL (4.18-5.48); Red Cell Distribution Width 14 % (10-15); White Blood Count 6.9 10^3/uL (3.5-10.8)
[2019-05-05 07:11] LABS: ABS Lymphocytes 1.6 10^3/ul (1.0-4.8); ABS Monocytes 0.5 10^3/ul (0-0.8); ABS Neutrophils 4.3 10^3/ul (1.5-7.7); Eosinophil % 0.6 %; Hematocrit 26 % (42-52); Hemoglobin 9.4 g/dL (14.0-18.0); Lymphocyte % 24.8 %; Mean Corpuscular HGB Conc 36 g/dL (31-36); Mean Corpuscular Hemoglobin 35 pg (27-31); Mean Corpuscular Volume 97 fL (80-94); Mean Platelet Volume 6.9 fL (7.4-10.4); Platelet Count 158 10^3/uL (150-450); Red Blood Count 2.69 10^6 /uL (4.18-5.48); Red Cell Distribution Width 14 % (10-15); White Blood Count 6.5 10^3/uL (3.5-10.8)
[2019-05-05 07:27] LABS: Albumin 3.4 g/dL (3.2-5.2); Albumin/Globulin Ratio 1.9 (1-3); BUN/Creatinine Ratio 19.1 (8-20); C Reactive Protein 19.06 mg/L (<8.01); Calcium 8.3 mg/dL (8.6-10.3); EGFR Non-African American 120.6 (>60); Globulin 1.8 g/dL (2-4); Potassium 3.9 mmol/L (3.5-5.0); Total Bilirubin 0.8 mg/dL (0.2-1.0); Total Protein 5.2 g/dL (6.4-8.9)
--- NOTE | 2019-05-05 10:19 | PN ---
Progress Note - Progress Note Date of Service: 05/05/19 Note: Surgery Progress Note S: Patient is doing well. Pain has improved. He is having a lot of UOP. He is ambulating independently. The dressing became a little soiled after walking. O: Vital Signs - 24 hr 05/04/19 05/04/19 05/04/19 10:32 11:59 15:35 Temperature 97.9 F 98.5 F Pulse Rate 77 75 Respiratory 16 16 16 Rate Blood Pressure 112/77 103/52 (mmHg) O2 Sat by Pulse 98 Oximetry 05/04/19 05/04/19 05/04/19 19:50 20:16 23:35 Temperature 98.4 F 99.1 F Pulse Rate 80 80 Respiratory 16 16 18 Rate Blood Pressure 101/58 111/60 (mmHg) O2 Sat by Pulse 97 98 Oximetry 05/05/19 05/05/19 05/05/19 03:46 07:51 08:00 Temperature 98.4 F 98.5 F Pulse Rate 74 77 Respiratory 16 16 16 Rate Blood Pressure 115/66 109/69 (mmHg) O2 Sat by Pulse 99 98 98 Oximetry Laboratory Results - last 24 hr 05/04/19 05/05/19 05/05/19 15:07 06:57 06:57 WBC 6.9 6.5 RBC 2.86 L 2.69 L Hgb 9.7 L 9.4 L Hct 28 L 26 L MCV 97 H 97 H MCH 34 H 35 H MCHC 35 36 RDW 14 14 Plt Count 179 158 MPV 6.8 L 6.9 L Neut % (Auto) 67.5 66.8 Lymph % (Auto) 25.5 24.8 [place] % (Auto) 6.6 7.5 Eos % (Auto) 0.2 0.6 Baso % (Auto) 0.2 0.3 Absolute Neuts (auto) 4.7 4.3 Absolute Lymphs (auto) 1.8 1.6 Absolute Monos (auto) 0.5 0.5 Absolute Eos (auto) 0.0 0.0 Absolute Basos (auto) 0.0 0.0 Absolute Nucleated RBC 0.0 0.0 Nucleated RBC % 0.0 0.0 Sodium 139 Potassium 3.9 Chloride 106 Carbon Dioxide 29 Anion Gap 4 BUN 13 Creatinine 0.68 Est GFR ( Amer) 146.0 Est GFR (Non-Af Amer) 120.6 BUN/Creatinine Ratio 19.1 Glucose 96 Calcium 8.3 L Total Bilirubin 0.80 AST 12 L ALT 11 Alkaline Phosphatase 41 C-Reactive Protein 19.06 H Total Protein 5.2 L Albumin 3.4 Globulin 1.8 L Albumin/Globulin Ratio 1.9 Lipase 19 Intake & Output 05/04/19 05/05/19 05/05/19 22:59 06:59 14:59 Intake Total 980 1185 Output Total 375 1400 Balance 605 -215 Intake: IV Fluids 980 LR 980 Oral 1185 Output: Urine 375 1400 Physical exam: Abdomen- soft, minimally tender in RLQ, packing removed and limited exploration of cavity showed no obvious bleeding. Approximatley 1/3 kerlix roll was replaced and dressing placed A/P: 58 M sp lap RIH repair with hematoma s/p evacuation. - Will observe one more day with packing, likely DC tomorrow - Regular diet - OOB and ambulate - Abdominal binder - Will start clindamycin given that mesh was placed, although it is below the rectus
[2019-05-05] MEDS: Clindamycin CAP* 150 MG PO SCH ×3 (12:19→23:21)
[2019-05-06] MEDS: Clindamycin CAP* 150 MG PO SCH (05:51)
[2019-05-06 06:40] LABS: Hematocrit 26 % (42-52); Hemoglobin 9.4 g/dL (14.0-18.0); Mean Corpuscular HGB Conc 36 g/dL (31-36); Mean Corpuscular Hemoglobin 35 pg (27-31); Mean Corpuscular Volume 97 fL (80-94); Mean Platelet Volume 7.3 fL (7.4-10.4); Platelet Count 168 10^3/uL (150-450); Red Blood Count 2.71 10^6 /uL (4.18-5.48); Red Cell Distribution Width 14 % (10-15); White Blood Count 6.1 10^3/uL (3.5-10.8)
[2019-05-06 07:52] VITALS: BP 103/67
--- NOTE | 2019-05-06 11:48 | DS ---
DISCHARGE SUMMARY: DATE OF ADMISSION: 05/03/19 DATE OF DISCHARGE: 05/06/19 SERVICE: General Surgery. ATTENDING SURGEON: Dr. Jeimy Rosas. ADMISSION DIAGNOSIS: Abdominal wall hematoma. DISCHARGE DIAGNOSIS: Abdominal wall hematoma. HOSPITAL COURSE: Mr. Moffett is a very pleasant 58-year-old gentleman with a history of symptomatic right inguinal hernia repair. He underwent an elective laparoscopic right inguinal hernia repair with mesh on 05/03/19. He was discharged from the recovery room; however, later in the afternoon he started to notice some swelling along his right lower abdominal wall. It continued to expand and therefore, he came to the emergency room after speaking with me. On evaluation, his hematocrit was 37, but he did have a very large abdominal wall mass that was likely a hematoma given that there was a mild amount of bruising and then he underwent a CT scan that clearly showed a large hematoma above the rectus muscle. Therefore, he was taken emergently to the operating room for evacuation of this hematoma and to obtain hemostasis. He tolerated this procedure well and on the day of discharge, on postoperative day 3, he was doing well. The packing that had been placed during the surgery for the hemostasis had been removed. His hematocrit has been stable and he has had some drainage from the wound, which was Steri-Stripped on the day of discharge. On the day of discharge, he was tolerating a regular diet, he was ambulating independently, he was urinating, and his pain was well controlled with minimal oral pain medications and he was determined therefore to be an appropriate candidate for discharge. On physical exam on discharge, vital signs: Temperature is 98.2, heart rate 76 , respiratory rate is 16, O2 sat is 98% O2 on room air, blood pressure is 103/ 67. Right lower abdomen: His two laparoscopic incisions are clean, dry, and intact. The right lower quadrant incision that had been made for evacuation of the hematoma was also clean, dry, and intact. The prior dressing was removed and somewhat saturated with serosanguineous fluid. The wound bed appeared to be without further bleeding. The skin around the wound had been cleaned with ChloraPrep and Steri-Strips were used to close the wound. There was some ecchymosis around his penis and his scrotum and some mild tenderness in the right lower quadrant around his hernia repair site. There was also a small amount of ecchymosis on his right hip. DIAGNOSTIC STUDIES/LAB DATA: Laboratory Values: White blood cell count is 6.1 , hemoglobin yesterday was 9.4 and the day before was 9.7, hematocrit is 26, platelets are 168. DISCHARGE MEDICATION: Clindamycin 300 mg p.o. q.6 hours. DISCHARGE INSTRUCTIONS: The patient was told to wear his abdominal binder all day as tolerated except for when he needs to take it off to shower. He can shower with the Tegaderm in place over his incision. Instructions were given to him to change the outer gauze and dressing if necessary if there is continued drainage from the wound. He should call or return to the emergency room for worsening pain, fevers, or rapid increase in bloody drainage. FOLLOWUP: The patient was told to return to the office to see me tomorrow morning at 10:30 a.m. I will examine the wound and amount of drainage and determine if a delayed primary closure can be performed. CONDITION: Good. DISPOSITION: To home. [id number]/[facility] #: [id number] SANTOS
== END 2019-05-06 12:00 | disposition home or self-care (01) | DRG 909 ==
LOC: ED 22:42 → OR 05-04 00:50 → SSU 05-04 02:50
PROVIDERS: ADMIT Surgery; ATTEND Surgery
PROC: 0W9F0ZZ Drainage of Abdominal Wall, Open Approach (ICD-10-PCS; 2019-05-04)
PROC: 0W3F0ZZ Control Bleeding in Abdominal Wall, Open Approach (ICD-10-PCS; principal; 2019-05-04 00:53)
DX: N99.841 Postprocedural hematoma of a genitourinary system organ or structure following other procedure (principal); E55.9 Vitamin D deficiency, unspecified; Z86.711 Personal history of pulmonary embolism; Z88.0 Allergy status to penicillin
CPT/HCPCS: 36415; 74177; 80048; 80053; 83605; 83690; 84484; 85025; 85027; 85610; 86140; 99284; A9270-GY; J2250; J3010; J3490; Q9967